=== PATIENT | female | born 1930 | race Caucasian/White ===

== ENCOUNTER 2016-11-12 13:06 | Emergency (ER) | payer MEDICARE, OTHER ==
[2016-11-12 13:19] VITALS: BP 143/58
[2016-11-12] MEDS ORDERED: NORMAL SALINE 1000 ML 1,000 ML IV PRN (15:23)
[2016-11-12] MEDS ORDERED: ONDANSETRON HCL INJ/PF 4 MG/2 ML SDV IV ONE (15:23)
[2016-11-12] MEDS ORDERED: FAMOTIDINE INJ/PF 20 MG/2 ML SDV IV ONE (15:23)
--- NOTE | 2016-11-12 15:25 | ER Document Report ---
ED Medical Screen (RME) - General Chief Complaint: Nausea/Vomiting/Diarrhea Stated Complaint: VOMITING Time Seen by Provider: 11/12/16 15:20 Mode of Arrival: Wheelchair Information source: Patient TRAVEL OUTSIDE OF THE [place] IN LAST 30 DAYS: No - HPI Patient complains to provider of: Right lower quadrant abdominal pain with nausea vomiting and diarrhea Onset: Yesterday Notes: 11/12/16 15:24 Is an 86-year-old female who presents to the emergency room complaining of right lower quadrant abdominal pain that started yesterday and is associated with nausea, vomiting and diarrhea, as well as chills, she was seen by her primary care provider today who sent her to the emergency room for evaluation for possible appendicitis, patient has a history of cholecystectomy in the past - Related Data Allergies/Adverse Reactions: Iodinated Contrast- Oral and IV Dye [IV Dye, Iodine Containing] Allergy (Severe , Verified 11/12/16 13:17) "Trouble Breathing" aspirin [Aspirin] Allergy (Verified 11/12/16 13:17) bacitracin [Bacitracin] Allergy (Verified 11/12/16 13:17) cephalexin [Cephalexin] Allergy (Verified 11/12/16 13:17) iodine [Iodine] Allergy (Verified 11/12/16 13:17) latex [Latex] Allergy (Verified 11/12/16 13:17) Quinolones Allergy (Verified 11/12/16 13:17) Sulfa (Sulfonamide Antibiotics) Allergy (Verified 11/12/16 13:17) Past Medical History - Past Medical History Cardiac Medical History: Reports: Hx Hypertension Pulmonary Medical History: Reports: Hx Asthma Neurological Medical History: Reports: 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, 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 Endocrine Medical History: Reports: Hx Diabetes Mellitus Type 2 - Controlled with diet Renal/ Medical History: Denies: Hx Peritoneal Dialysis GI Medical History: Reports: Hx Gastroesophageal Reflux Disease Musculoskeltal Medical History: Reports Hx Arthritis Psychiatric Medical History: Reports: Hx Depression Past Surgical History: Reports: Hx Cholecystectomy, Hx Hysterectomy, Hx Orthopedic Surgery - Bilat Feet, Hx Tonsillectomy - Immunizations Hx Diphtheria, Pertussis, Tetanus Vaccination: Yes Physical Exam - Vital signs Vitals: Temp Pulse Resp BP Pulse Ox 98.1 F 70 20 143/58 H 94 11/12/16 13:17 11/12/16 13:17 11/12/16 13:17 11/12/16 13:17 11/12/16 13:17 Course - Vital Signs Vital signs: Temp Pulse Resp BP Pulse Ox 98.1 F 70 20 143/58 H 94 11/12/16 13:17 11/12/16 13:17 11/12/16 13:17 11/12/16 13:17 11/12/16 13:17
--- NOTE | 2016-11-12 16:23 | ER Document Report ---
ED GI/ - General Chief Complaint: Nausea/Vomiting/Diarrhea Stated Complaint: VOMITING Time Seen by Provider: 11/12/16 15:20 Mode of Arrival: Wheelchair Notes: Patient is an 86-year-old female, past medical history cholecystitis, presents with increasing right lower quadrant abdominal pain, nausea and diarrhea over the past 2 days. She was seen at her primary care physician and sent to the ER for further evaluation and treatment. She denies fevers, urinary symptoms, flank pain, hematemesis, blood in stool, chest pain or shortness of breath. TRAVEL OUTSIDE OF THE [place] IN LAST 30 DAYS: No - Related Data Allergies/Adverse Reactions: Iodinated Contrast- Oral and IV Dye [IV Dye, Iodine Containing] Allergy (Severe , Verified 11/12/16 13:17) "Trouble Breathing" aspirin [Aspirin] Allergy (Verified 11/12/16 13:17) bacitracin [Bacitracin] Allergy (Verified 11/12/16 13:17) cephalexin [Cephalexin] Allergy (Verified 11/12/16 13:17) iodine [Iodine] Allergy (Verified 11/12/16 13:17) latex [Latex] Allergy (Verified 11/12/16 13:17) Quinolones Allergy (Verified 11/12/16 13:17) Sulfa (Sulfonamide Antibiotics) Allergy (Verified 11/12/16 13:17) Past Medical History - General Information source: Patient - Social History Smoking Status: Unknown if Ever Smoked Family History: Reviewed & Not Pertinent Patient has suicidal ideation: No Patient has homicidal ideation: No - Past Medical History Cardiac Medical History: Reports: Hx Hypertension Pulmonary Medical History: Reports: Hx Asthma Neurological Medical History: Reports: 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, 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 Endocrine Medical History: Reports: Hx Diabetes Mellitus Type 2 - Controlled with diet Renal/ Medical History: Denies: Hx Peritoneal Dialysis GI Medical History: Reports: Hx Gastroesophageal Reflux Disease Musculoskeltal Medical History: Reports Hx Arthritis Psychiatric Medical History: Reports: Hx Depression Past Surgical History: Reports: Hx Cholecystectomy, Hx Hysterectomy, Hx Orthopedic Surgery - Bilat Feet, Hx Tonsillectomy - Immunizations Hx Diphtheria, Pertussis, Tetanus Vaccination: Yes Hx Pneumococcal Vaccination: 05/27/08 Review of Systems - Review of Systems Notes: REVIEW OF SYSTEMS: CONSTITUTIONAL: -fevers, -chills EENT: -eye pain, -difficulty swallowing, -nasal congestion CARDIOVASCULAR:-chest pain, -syncope. RESPIRATORY: -cough, -SOB GASTROINTESTINAL: +abdominal pain, +nausea, +vomiting, +diarrhea GENITOURINARY: -dysuria, -hematuria MUSCULOSKELETAL: -back pain, -neck pain SKIN: -rash or skin lesions. HEMATOLOGIC: -easy bruising or bleeding. LYMPHATIC: -swollen, enlarged glands. NEUROLOGICAL: -altered mental status or loss of consciousness, -headache, - neurologic symptoms PSYCHIATRIC: -anxiety, -depression. ALL OTHER SYSTEMS REVIEWED AND NEGATIVE. Physical Exam - Vital signs Vitals: Temp Pulse Resp BP Pulse Ox 98.1 F 70 20 143/58 H 94 11/12/16 13:11/12/16 13:11/12/16 13:17 11/12/16 13:11/12/16 13:17 - Notes Notes: PHYSICAL EXAMINATION: GENERAL: Well-appearing, well-nourished and in no acute distress. HEAD: Atraumatic, normocephalic. EYES: Pupils equal round and reactive to light, extraocular movements intact, sclera anicteric, conjunctiva are normal. ENT: nares patent, oropharynx clear without exudates. Moist mucous membranes. NECK: Normal range of motion, supple without lymphadenopathy LUNGS: Breath sounds clear to auscultation bilaterally and equal. No wheezes rales or rhonchi. HEART: Regular rate and rhythm without murmurs ABDOMEN: Soft, moderate RLQ and suprapubic tenderness, normoactive bowel sounds. No guarding, no rebound. No masses appreciated. EXTREMITIES: Normal range of motion, no pitting or edema. No cyanosis. NEUROLOGICAL: Cranial nerves grossly intact. Normal speech, normal gait. Normal sensory and motor exams. PSYCH: Normal mood, normal affect. SKIN: Warm, Dry, normal turgor, no rashes or lesions noted. Course - Re-evaluation Re-evalutation: Patient has evidence of UTI. She appears well and her mental status is baseline per her family. Pt with multiple Abx allergies. Her family says that she has taken Macrobid without any reactions. Will send home with Macrobid and f /u at her PMD. Also told family about adrenal mass and need for outpatient MRI. They understand and they were provided with a copy of the CT results. Given return precautions and they understand. - Vital Signs Vital signs: Temp Pulse Resp BP Pulse Ox 98.1 F 70 20 143/58 H 94 11/12/16 13:17 11/12/16 13:17 11/12/16 13:17 11/12/16 13:17 11/12/16 13:17 - Laboratory Result Diagrams: 11/12/16 16:38 11/12/16 16:38 Laboratory results interpreted by me: 11/12/16 11/12/16 11/12/16 16:23 16:38 16:38 RDW 14.8 H Sodium 130.1 L Chloride 92 L Urine Ketones 20 H Urine Nitrite POSITIVE H Ur Leukocyte Esterase SMALL H Urine Ascorbic Acid 40 H - Diagnostic Test Radiology reviewed: Image reviewed, Reports reviewed Radiology results interpreted by me: CT A/P: IMPRESSION: 1. There is a left adrenal nodule that is not obviously an adenoma. Consider MRI or CT with contrast further evaluation. 2. Diverticulosis coli. 3. There are 2 nonobstructing intrarenal calculi on the left. 4. There is lumbar degenerative disc disease and spondylosis. Discharge - Discharge Clinical Impression: Adrenal mass UTI (urinary tract infection) Qualifiers: Urinary tract infection type: acute cystitis Hematuria presence: without hematuria Qualified Code(s): N30.00 - Acute cystitis without hematuria Abdominal pain Qualifiers: Abdominal location: unspecified location Qualified Code(s): R10.9 - Unspecified abdominal pain Condition: Stable Disposition: HOME, SELF-CARE Additional Instructions: You must follow-up with your primary care physician for further evaluation of your adrenal mass. URINARY TRACT INFECTION: Your evaluation indicates that you have a urinary tract infection. This is due to germs growing in the bladder. This is a common problem. This infection usually responds quickly to antibiotics. Your antibiotic should be taken exactly as prescribed. Drink plenty of fluids -- three to four quarts a day. Occasionally, a bladder anesthetic will be prescribed to help stop the feeling of urgency until the antibiotic has a chance to clear the infection. This may cause your urine to be dark orange. Certain urine infections require a culture. If the doctor obtained a culture, the results will be back in two days. You should call to see if a change in treatment is needed. A repeat urinalysis after you finish treatment is often recommended. The physician will let you know if further testing is required. Call the doctor if you develop fever, chills, flank pain, inability to urinate, or blood in the urine. ANTIBIOTIC THERAPY: You have been given an antibiotic prescription. It's important that you take all the medication, unless instructed otherwise by your physician. Failure to complete the entire course can result in relapse of your condition. Common side effects of antibiotics include nausea, intestinal cramping, or diarrhea. Women may develop vaginal yeast infections, and babies can get yeast (thrush) in the mouth following the use of antibiotics. Contact your physician if you develop significant side effects from this medication. Allergy to this antibiotic can result in hives, wheezing, faintness, or itching. If symptoms of allergy occur, stop the medication and call the doctor. NITROFURANTOIN (MACRODANTIN, MACROBID): You have received a prescription for nitrofurantoin (Macrodantin). This antibiotic is used for urinary tract infections. Women who are or nursing should notify the physician before taking this medicine. If you have ever had a problem caused by this medication in the past, be sure the physician is aware of it. Common side effects of this medicine include nausea, vomiting, or decreased appetite. Notify your physician if these side effects become severe. Immediately stop this medicine and call the physician if you develop cough , shortness of breath, chest pain, weakness, jaundice (yellow color of the skin and whites of the eyes), or a skin rash. FOLLOW-UP CARE: If you have been referred to a physician for follow-up care, call the physician s office for an appointment as you were instructed or within the next two days. If you experience worsening or a significant change in your symptoms, notify the physician immediately or return to the Emergency Department at any time for re-evaluation. Prescriptions: Metoclopramide HCl [Reglan 10 mg Tablet] 1 - 2 tab PO ASDIR PRN #10 tablet PRN Reason: Nitrofurantoin/Nitrofuran Mac [Macrobid 100 mg Capsule] 1 tab PO BID #10 capsule
[2016-11-12 16:51] LABS: APPEARANCE,URINE SLIGHTLY-CLOUDY; BILIRUBIN,URINE NEGATIVE (NEGATIVE); GLUCOSE, URINE NEGATIVE (NEGATIVE); KETONES,URINE 20 mg/dL (NEGATIVE); LEUKOCYTE ESTERASE,URINE SMALL (NEGATIVE); NITRITE,URINE POSITIVE (NEGATIVE); PROTEIN,URINE NEGATIVE (NEGATIVE); URINE SPECIFIC GRAVITY 1.017; UROBILINOGEN,URINE NEGATIVE mg/dL (<2.0)
[2016-11-12 16:58] LABS: ABSOLUTE LYMPHOCYTES (AUTO) 1.5 10^3/uL (0.5-4.7); ABSOLUTE MONOCYTES (AUTO) 0.7 10^3/uL (0.1-1.4); BASOPHILS % (AUTO) 0.5 % (0-2); EOSINOPHILS % (AUTO) 0.6 % (0-6); HEMATOCRIT 36.2 % (36.0-47.0); HEMOGLOBIN 12.2 g/dL (12.0-15.5); HGB HCT DIFFERENCE 0.4; LYMPHOCYTES % (AUTO) 20.2 % (13-45); MEAN CORPUSCULAR HEMOGLOBIN 30.2 pg (27.0-33.4); MEAN CORPUSCULAR HGB CONC 33.8 g/dL (32.0-36.0); MEAN CORPUSCULAR VOLUME 89 fl (80-97); RED BLOOD COUNT 4.04 10^6/uL (3.72-5.28); RED CELL DISTRIBUTION WIDTH 14.8 % (11.5-14.0); SEGMENTED NEUTROPHILS % (AUTO) 69.7 % (42-78); WHITE BLOOD COUNT 7.2 10^3/uL (4.0-10.5)
[2016-11-12] MEDS ORDERED: METOCLOPRAMIDE HCL INJ/PF 10 MG/2 ML SDV IV ONE (17:08)
[2016-11-12 17:17] LABS: ALANINE AMINOTRANSFERASE 33 U/L (9-52); ALBUMIN 3.8 g/dL (3.5-5.0); ALKALINE PHOSPHATASE 59 U/L (38-126); ANION GAP 9 (5-19); ASPARTATE AMINO TRANSFERASE 24 U/L (14-36); BILIRUBIN,DIRECT 0.2 mg/dL (0.0-0.4); BILIRUBIN,TOTAL 0.6 mg/dL (0.2-1.3); BLOOD UREA NITROGEN 16 mg/dL (7-20); CALCIUM 9.1 mg/dL (8.4-10.2); CARBON DIOXIDE 29 mmol/L (22-30); CHLORIDE 92 mmol/L (98-107); CREATININE RESULT 0.76 mg/dL (0.52-1.25); GLUCOSE 88 mg/dL (75-110); LIPASE 69.6 U/L (23-300); POTASSIUM 4.4 mmol/L (3.6-5.0); SODIUM 130.1 mmol/L (137-145); TOTAL PROTEIN 6.9 g/dL (6.3-8.2)
--- NOTE | 2016-11-12 17:38 | RADIOLOGY REPORT (SQ) ---
EXAM DESCRIPTION: CT ABD/PELVIS NO ORAL OR IV COMPLETED DATE/TIME: 11/12/2016 5:17 pm REASON FOR STUDY: RLQ pain COMPARISON: None. TECHNIQUE: CT scan of the abdomen and pelvis performed without intravenous or oral contrast. Images reviewed with lung, soft tissue, and bone windows. Reconstructed coronal and sagittal MPR images revi ewed. All images stored on PACS. All CT scanners at this facility use dose modulation, iterative reconstruction, and/or weight based d osing when appropriate to reduce radiation dose to as low as reasonably achievable (ALARA). [facility]: Dose Right [facility]: CareDose [facility]: Dose Right [facility]: Teradose 4D [facility]: Obvious RADIATION DOSE: 10.77mGy. LIMITATIONS: None. FINDINGS: LOWER CHEST: No significant findings. No nodules or infiltrates. NON-CONTRASTED LIVER, SPLEEN, ADRENALS: The liver and spleen are normal. There is a 14 mm left adren al nodule of intermediate density, 38 Hounsfield units. PANCREAS: No masses. No peripancreatic inflammatory changes. GALLBLADDER: Surgically absent. RIGHT KIDNEY AND URETER: No suspicious masses. Assessment limited by lack of IV contrast. No signif icant calcifications. No hydronephrosis or hydroureter. LEFT KIDNEY AND URETER: No suspicious masses. Assessment limited by lack of IV contrast. There are 2 nonobstructing intrarenal calculi. The larger measures about 3 mm. No hydronephrosis or hydroure ter. AORTA AND RETROPERITONEUM: No aneurysm. No retroperitoneal masses or adenopathy. BOWEL AND PERITONEAL CAVITY: Multiple diverticula arise from the distal sigmoid colon and rectum. Th ere are no acute inflammatory changes. APPENDIX: Normal. PELVIS, BLADDER, AND ABDOMINAL WALL:The urinary bladder is normal. The uterus appears to be absent. There is no adnexal mass or fluid collection. BONES: All the lumbar disc spaces are narrowed. Small marginal osteophytes are present. OTHER: No other significant finding. IMPRESSION: 1. There is a left adrenal nodule that is not obviously an adenoma. Consider MRI or CT with contrast further evaluation. 2. Diverticulosis coli. 3. There are 2 nonobstructing intrarenal calculi on the left. 4. There is lumbar degenerative disc disease and spondylosis. TECHNICAL DOCUMENTATION: JOB ID: [id number] Quality ID # [id number]: Final reports with documentation of one or more dose reduction techniques (e.g., Au tomated exposure control, adjustment of the mA and/or kV according to patient size, use of iterative reconstruction technique) 2010 [employer]- All Rights Reserved
--- NOTE | 2016-11-12 17:57 | EKG REPORT ---
SEVERITY:- ABNORMAL ECG - INCOMPLETE LEFT BUNDLE BRANCH BLOCK ANTERIOR INFARCT, AGE INDETERMINATE BORDERLINE PROLONGED QT INTERVAL SINUS RHYTHM WITH APC'S AND BASELINE ARTIFACT : Confirmed by: Delia Pimentel MD 12-Nov-2016 17:56:42
[2016-11-12] MEDS ORDERED: NITROFURANTOIN MONOHYD/M-CRYST 100 MG CAPSULE PO ONE (18:12)
== END 2016-11-12 19:16 | disposition home or self-care (01) ==
LOC: ER 13:06
DX: E27.9 Disorder of adrenal gland, unspecified (principal); N30.00 Acute cystitis without hematuria; R11.2 Nausea with vomiting, unspecified; R19.7 Diarrhea, unspecified; R10.31 Right lower quadrant pain
CPT/HCPCS: 36415; 51701; 74176; 80053; 81001; 83690; 85025; 87086; 87088; 87186; 93005; 93010; 99284

== ENCOUNTER 2017-04-29 13:37 | Emergency (ER) | payer MEDICARE, OTHER ==
--- NOTE | 2017-04-29 15:03 | ER Document Report ---
ED General - General Chief Complaint: Medical Complaint Stated Complaint: ALTERED MENTAL STATUS Time Seen by Provider: 04/29/17 14:13 Mode of Arrival: Stretcher Information source: Patient, Transfer Record, [facility] Records Cannot obtain history due to: Dementia TRAVEL OUTSIDE OF THE [place] IN LAST 30 DAYS: No - HPI Patient complains to provider of: no complaints Similar symptoms previously: Yes Notes: Went into the room was the patient was sitting upright in her gurney. Her eyes were open. When I asked her what was wrong she stated she really had no complaints. Requesting a glass of water. According to the nurse after I talked to her she stated that the patient appeared short of breath at home and soon the family gave her breathing treatment and then sent her here to be evaluated. The patient does admit to holding her breath because she was afraid of dying. Patient does have dementia although alert and oriented 3 in the emergency department. She cannot name the exact year but she does know that the president is "Alejandro Hopper". - Related Data Allergies/Adverse Reactions: Iodinated Contrast- Oral and IV Dye [IV Dye, Iodine Containing] Allergy (Severe , Verified 11/12/16 13:17) "Trouble Breathing" aspirin [Aspirin] Allergy (Verified 11/12/16 13:17) bacitracin [Bacitracin] Allergy (Verified 11/12/16 13:17) cephalexin [Cephalexin] Allergy (Verified 11/12/16 13:17) iodine [Iodine] Allergy (Verified 11/12/16 13:17) latex [Latex] Allergy (Verified 11/12/16 13:17) Quinolones Allergy (Verified 11/12/16 13:17) Sulfa (Sulfonamide Antibiotics) Allergy (Verified 11/12/16 13:17) Past Medical History - General Information source: [facility] Records Cannot obtain history due to: Dementia - Social History Smoking Status: Unknown if Ever Smoked Cigarette use (# per day): No Smoking Education Provided: No Frequency of alcohol use: None Drug Abuse: None Lives with: Family Family History: Reviewed & Not Pertinent Patient has suicidal ideation: No Patient has homicidal ideation: No - Past Medical History Cardiac Medical History: Reports: Hx Hypertension Pulmonary Medical History: Reports: Hx Asthma Neurological Medical History: Reports: 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, 11/10/14 Endocrine Medical History: Reports: Hx Diabetes Mellitus Type 2 - Controlled with diet Renal/ Medical History: Denies: Hx Peritoneal Dialysis GI Medical History: Reports: Hx Gastroesophageal Reflux Disease Musculoskeltal Medical History: Reports Hx Arthritis Psychiatric Medical History: Reports: Hx Depression Past Surgical History: Reports: Hx Cholecystectomy, Hx Hysterectomy, Hx Orthopedic Surgery - Bilat Feet, Hx Tonsillectomy - Immunizations Hx Diphtheria, Pertussis, Tetanus Vaccination: Yes Hx Pneumococcal Vaccination: 05/27/08 Review of Systems - Review of Systems Constitutional: denies: Fever, Weakness EENT: denies: Nose congestion, Difficulty swallowing Cardiovascular: denies: Chest pain Respiratory: denies: Cough, Short of breath Gastrointestinal: denies: Abdominal pain Musculoskeletal: denies: Back pain Neurological/Psychological: Dementia Physical Exam - Vital signs Vitals: Resp Pulse Ox 15 98 04/29/17 13:46 04/29/17 13:46 - Notes Notes: PHYSICAL EXAMINATION: GENERAL: Well-appearing, well-nourished and in no acute distress. HEAD: Atraumatic, normocephalic. EYES: Pupils equal round and reactive to light, extraocular movements intact, conjunctiva are normal. ENT: Nares patent, oropharynx clear without exudates. Moist mucous membranes. NECK: Normal range of motion, supple without lymphadenopathy LUNGS: Breath sounds clear to auscultation bilaterally and equal. No wheezes rales or rhonchi. HEART: Regular rate and rhythm ABDOMEN: Soft, nontender, nondistended abdomen. No guarding, no rebound. No masses appreciated. Female : deferred Musculoskeletal: Normal range of motion, no pitting or edema. No cyanosis. NEUROLOGICAL: Cranial nerves grossly intact. Normal speech, normal gait. Normal sensory, motor exams PSYCH: Normal mood, normal affect. SKIN: Warm, Dry, normal turgor, no rashes or lesions noted. Course - Re-evaluation Re-evalutation: 04/29/17 16:37 Nurses obtaining the urine right now via straight cath. I did talk to the patient's son as well as the patient's grandson. They stated that the patient had difficulty breathing at home and then she coughed up a lot of mucus. They said she also had a "puddle of fluid underneath her that appeared to be urine mixed with feces SPLICING TECHNICIAN. 04/29/17 20:17 The nurse stated that when she attempted to obtain the urine that the patient urinated around the catheter. At that point there is no urine to be obtained. I continue to await urine. I did ask the nurse multiple times for specimen. It is currently in the lab and the results are pending - Vital Signs Vital signs: Temp Pulse Resp BP Pulse Ox 9 L 137/49 H 94 04/29/17 18:01 04/29/17 18:01 04/29/17 18:01 - Laboratory Result Diagrams: 04/29/17 15:32 04/29/17 15:32 Laboratory results interpreted by me: 04/29/17 04/29/17 15:32 19:48 Hgb 11.9 L Hct 35.2 L RDW 15.1 H Seg Neutrophils % 78.8 H Urine Ketones 20 H Urine Urobilinogen 2.0 H Urine Ascorbic Acid 20 H Discharge - Discharge Clinical Impression: Anemia Condition: Stable Disposition: HOME, SELF-CARE Additional Instructions: please follow up with Dr. Painting, your primary doctor this week.
[2017-04-29 15:52] LABS: ABSOLUTE LYMPHOCYTES (AUTO) 1.3 10^3/uL (0.5-4.7); ABSOLUTE MONOCYTES (AUTO) 0.7 10^3/uL (0.1-1.4); ABSOLUTE NEUT (AUTO) 7.9 10^3/uL (1.7-8.2); BASOPHILS % (AUTO) 0.3 % (0-2); EOSINOPHILS % (AUTO) 0.4 % (0-6); HEMATOCRIT 35.2 % (36.0-47.0); HEMOGLOBIN 11.9 g/dL (12.0-15.5); HGB HCT DIFFERENCE 0.5; LYMPHOCYTES % (AUTO) 13.2 % (13-45); MEAN CORPUSCULAR HEMOGLOBIN 30.6 pg (27.0-33.4); MEAN CORPUSCULAR HGB CONC 33.9 g/dL (32.0-36.0); MEAN CORPUSCULAR VOLUME 90 fl (80-97); MONOCYTES % (AUTO) 7.3 % (3-13); RED BLOOD COUNT 3.89 10^6/uL (3.72-5.28); RED CELL DISTRIBUTION WIDTH 15.1 % (11.5-14.0); SEGMENTED NEUTROPHILS % (AUTO) 78.8 % (42-78)
[2017-04-29 16:09] LABS: ANION GAP 14 (5-19); BLOOD UREA NITROGEN 17 mg/dL (7-20); CALCIUM 9.5 mg/dL (8.4-10.2); CARBON DIOXIDE 29 mmol/L (22-30); CHLORIDE 100 mmol/L (98-107); CREATININE RESULT 0.77 mg/dL (0.52-1.25); GLUCOSE 96 mg/dL (75-110); POTASSIUM 4.2 mmol/L (3.6-5.0); SODIUM 142.6 mmol/L (137-145)
--- NOTE | 2017-04-29 17:18 | RADIOLOGY REPORT (SQ) ---
EXAM DESCRIPTION: CHEST SINGLE VIEW COMPLETED DATE/TIME: 04/29/2017 4:54 pm REASON FOR STUDY: sob COMPARISON: 04/05/2014 EXAM PARAMETERS: NUMBER OF VIEWS: One view. TECHNIQUE: Single frontal radiographic view of the chest acquired. RADIATION DOSE: NA LIMITATIONS: None. FINDINGS: LUNGS AND PLEURA: No opacities, masses or pneumothorax. No pleural effusion. MEDIASTINUM AND HILAR STRUCTURES: No masses. Contour normal. HEART AND VASCULAR STRUCTURES: Heart normal in size. Normal vasculature. BONES: No acute findings. HARDWARE: None in the chest. OTHER: No other significant finding. IMPRESSION: NO ACUTE RADIOGRAPHIC FINDING IN THE CHEST. TECHNICAL DOCUMENTATION: JOB ID: [id number] [employer]- All Rights Reserved
[2017-04-29 20:15] LABS: APPEARANCE,URINE CLEAR; BILIRUBIN,URINE NEGATIVE (NEGATIVE); GLUCOSE, URINE NEGATIVE (NEGATIVE); KETONES,URINE 20 mg/dL (NEGATIVE); LEUKOCYTE ESTERASE,URINE NEGATIVE (NEGATIVE); NITRITE,URINE NEGATIVE (NEGATIVE); PROTEIN,URINE NEGATIVE (NEGATIVE); URINE SPECIFIC GRAVITY 1.018
[2017-04-29 20:27] LABS: WBC,URINE 0-1 /HPF
[2017-04-29 21:08] VITALS: BP 113/51
== END 2017-04-29 21:27 | disposition home or self-care (01) ==
LOC: ER 13:37
DX: D64.9 Anemia, unspecified (principal); R41.82 Altered mental status, unspecified; I10 Essential (primary) hypertension; F03.90 Unspecified dementia, unspecified severity, without behavioral disturbance, psychotic disturbance, mood disturbance, and anxiety; Z88.6 Allergy status to analgesic agent; I69.951 Hemiplegia and hemiparesis following unspecified cerebrovascular disease affecting right dominant side; Z90.49 Acquired absence of other specified parts of digestive tract; Z90.710 Acquired absence of both cervix and uterus; Z91.040 Latex allergy status; Z88.2 Allergy status to sulfonamides
CPT/HCPCS: 36415; 51701; 71010; 80048; 81001; 85025; 99285

== ENCOUNTER 2017-09-25 11:43 | Observation (INO) | payer MEDICARE, OTHER ==
--- NOTE | 2017-09-25 12:08 | ER Document Report ---
ED Medical Screen (RME) - General Chief Complaint: Urinary Problem Stated Complaint: URINARY PROBLEMS Time Seen by Provider: 09/25/17 11:59 Mode of Arrival: Wheelchair Information source: Relative Cannot obtain history due to: Dementia TRAVEL OUTSIDE OF THE [place] IN LAST 30 DAYS: No - HPI Onset: Other - MAYBE A MONTH Onset/Duration: Gradual Quality of pain: Other - CAN'T DESCRIBE Severity: Moderate Associated Symptoms: Chills, Diarrhea, Other - WORSENING DEMENTIA Exacerbated by: Denies Relieved by: Denies Similar symptoms previously: Yes Recently seen / treated by doctor: No - Related Data Smoking: Non-smoker Frequency of alcohol use: None Drug Abuse: None Allergies/Adverse Reactions: Iodinated Contrast- Oral and IV Dye [IV Dye, Iodine Containing] Allergy (Severe , Verified 11/12/16 13:17) "Trouble Breathing" aspirin [Aspirin] Allergy (Verified 11/12/16 13:17) bacitracin [Bacitracin] Allergy (Verified 11/12/16 13:17) cephalexin [Cephalexin] Allergy (Verified 11/12/16 13:17) iodine [Iodine] Allergy (Verified 11/12/16 13:17) latex [Latex] Allergy (Verified 11/12/16 13:17) Quinolones Allergy (Verified 11/12/16 13:17) Sulfa (Sulfonamide Antibiotics) Allergy (Verified 11/12/16 13:17) Past Medical History - General Information source: Relative - Social History Cigarette use (# per day): No Chew tobacco use (# tins/day): No Frequency of alcohol use: None Drug Abuse: None Lives with: Family - Past Medical History Cardiac Medical History: Reports: Hx Hypertension Pulmonary Medical History: Reports: Hx Asthma Neurological Medical History: Reports: 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, 04/05/14 Endocrine Medical History: Reports: Hx Diabetes Mellitus Type 2 - Controlled with diet Renal/ Medical History: Denies: Hx Peritoneal Dialysis GI Medical History: Reports: Hx Gastroesophageal Reflux Disease Musculoskeltal Medical History: Reports Hx Arthritis Psychiatric Medical History: Reports: Hx Depression Past Surgical History: Reports: Hx Cholecystectomy, Hx Hysterectomy, Hx Orthopedic Surgery - Bilat Feet, Hx Tonsillectomy - Immunizations Hx Diphtheria, Pertussis, Tetanus Vaccination: Yes Review of Systems - Review of Systems Constitutional: Chills EENT: No symptoms reported Cardiovascular: No symptoms reported Respiratory: No symptoms reported Gastrointestinal: See HPI Genitourinary: See HPI Female Genitourinary: Post menopausal Skin: No symptoms reported Neurological/Psychological: Dementia Physical Exam - Vital signs Vitals: Temp Pulse Resp BP 98.4 F 72 18 125/52 L 09/25/17 11:52 09/25/17 11:52 09/25/17 11:52 09/25/17 11:52 Interpretation: Normal. No: Tachycardic, Tachypneic, Febrile - General General appearance: Appears well, Alert In distress: None - HEENT Head: Normocephalic Eyes: Normal Conjunctiva: Normal Nasal: Normal Mouth/Lips: Normal Mucous membranes: Normal - Respiratory Respiratory status: No respiratory distress - Cardiovascular Rhythm: Regular - Extremities General upper extremity: Normal inspection General lower extremity: Normal inspection. No: Edema - Neurological Cognition: Confused - Skin Skin Temperature: Warm Skin Moisture: Dry Skin Color: Normal Skin Turgor: Elastic Course - Vital Signs Vital signs: Temp Pulse Resp BP Pulse Ox 98.4 F 72 18 125/52 L 09/25/17 11:52 09/25/17 11:52 09/25/17 11:52 09/25/17 11:52
[2017-09-25 14:10] LABS: ABSOLUTE BASOPHILS # (AUTO) 0.1 10^3/uL (0.0-0.2); ABSOLUTE LYMPHOCYTES (AUTO) 1.5 10^3/uL (0.5-4.7); ABSOLUTE MONOCYTES (AUTO) 0.7 10^3/uL (0.1-1.4); ABSOLUTE NEUT (AUTO) 8.6 10^3/uL (1.7-8.2); BASOPHILS % (AUTO) 0.6 % (0-2); EOSINOPHILS % (AUTO) 0.3 % (0-6); HEMATOCRIT 39.2 % (36.0-47.0); HEMOGLOBIN 13.1 g/dL (12.0-15.5); LYMPHOCYTES % (AUTO) 13.6 % (13-45); MEAN CORPUSCULAR HEMOGLOBIN 29.8 pg (27.0-33.4); MEAN CORPUSCULAR HGB CONC 33.4 g/dL (32.0-36.0); MEAN CORPUSCULAR VOLUME 89 fl (80-97); MONOCYTES % (AUTO) 6.7 % (3-13); RED BLOOD COUNT 4.39 10^6/uL (3.72-5.28); RED CELL DISTRIBUTION WIDTH 15.1 % (11.5-14.0); SEGMENTED NEUTROPHILS % (AUTO) 78.8 % (42-78); TOTAL CELLS COUNTED % (AUTO) 100 %; WHITE BLOOD COUNT 10.9 10^3/uL (4.0-10.5)
[2017-09-25 14:17] LABS: APPEARANCE,URINE SLIGHTLY-CLOUDY; BILIRUBIN,URINE SMALL (NEGATIVE); COLOR,URINE YELLOW; GLUCOSE, URINE NEGATIVE (NEGATIVE); KETONES,URINE TRACE mg/dL (NEGATIVE); LEUKOCYTE ESTERASE,URINE LARGE (NEGATIVE); NITRITE,URINE NEGATIVE (NEGATIVE); PROTEIN,URINE 100 mg/dL (NEGATIVE); URINE SPECIFIC GRAVITY 1.025
[2017-09-25 14:23] LABS: ALANINE AMINOTRANSFERASE 21 U/L (9-52); ALBUMIN 4.1 g/dL (3.5-5.0); ALKALINE PHOSPHATASE 64 U/L (38-126); ANION GAP 14 (5-19); ASPARTATE AMINO TRANSFERASE 28 U/L (14-36); BILIRUBIN,DIRECT 0.3 mg/dL (0.0-0.4); BILIRUBIN,TOTAL 0.3 mg/dL (0.2-1.3); BLOOD UREA NITROGEN 22 mg/dL (7-20); CALCIUM 9.6 mg/dL (8.4-10.2); CARBON DIOXIDE 29 mmol/L (22-30); CHLORIDE 98 mmol/L (98-107); GLUCOSE 113 mg/dL (75-110); LIPASE 69.1 U/L (23-300); SODIUM 141.3 mmol/L (137-145); TOTAL PROTEIN 6.9 g/dL (6.3-8.2)
[2017-09-25 14:26] LABS: PLATELET COUNT 283 10^3/uL (150-450)
[2017-09-25] MEDS ORDERED: DOXYCYCLINE HYCLATE INJ 100 MG VIAL IV ONE (14:58)
--- NOTE | 2017-09-25 14:59 | ER Document Report ---
ED GI/ - General Chief Complaint: Urinary Problem Stated Complaint: URINARY PROBLEMS Time Seen by Provider: 09/25/17 11:59 Mode of Arrival: Wheelchair Notes: The patient is an 86-year-old female, past medical history dementia, CVA, TIA, presents from her primary care physician's office, Dr. Stauffer after she has had diarrhea for 10 days, vomiting for 1 day and decreased oral intake. In addition, she is having increased confusion during this time. Patient states that she is having painful urination and lower abdominal pain. No history of recent antibiotic use to suggest C. difficile. TRAVEL OUTSIDE OF THE [place] IN LAST 30 DAYS: No - Related Data Allergies/Adverse Reactions: Iodinated Contrast- Oral and IV Dye [IV Dye, Iodine Containing] Allergy (Severe , Verified 11/12/16 13:17) "Trouble Breathing" aspirin [Aspirin] Allergy (Verified 11/12/16 13:17) bacitracin [Bacitracin] Allergy (Verified 11/12/16 13:17) cephalexin [Cephalexin] Allergy (Verified 11/12/16 13:17) iodine [Iodine] Allergy (Verified 11/12/16 13:17) latex [Latex] Allergy (Verified 11/12/16 13:17) Quinolones Allergy (Verified 11/12/16 13:17) Sulfa (Sulfonamide Antibiotics) Allergy (Verified 11/12/16 13:17) Past Medical History - General Information source: Patient, Relative - Social History Smoking Status: Never Smoker Cigarette use (# per day): No Chew tobacco use (# tins/day): No Frequency of alcohol use: None Drug Abuse: None Lives with: Family Family History: Reviewed & Not Pertinent Patient has suicidal ideation: No Patient has homicidal ideation: No - Past Medical History Cardiac Medical History: Reports: Hx Hypertension Pulmonary Medical History: Reports: Hx Asthma Neurological Medical History: Reports: 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, 04/05/14 Endocrine Medical History: Reports: Hx Diabetes Mellitus Type 2 - Controlled with diet Renal/ Medical History: Denies: Hx Peritoneal Dialysis GI Medical History: Reports: Hx Gastroesophageal Reflux Disease Musculoskeltal Medical History: Reports Hx Arthritis Psychiatric Medical History: Reports: Hx Depression Past Surgical History: Reports: Hx Cholecystectomy, Hx Hysterectomy, Hx Orthopedic Surgery - Bilat Feet, Hx Tonsillectomy - Immunizations Hx Diphtheria, Pertussis, Tetanus Vaccination: Yes Hx Pneumococcal Vaccination: 05/27/08 Review of Systems - Review of Systems Notes: REVIEW OF SYSTEMS: CONSTITUTIONAL: -fevers, -chills EENT: -eye pain, -difficulty swallowing, -nasal congestion CARDIOVASCULAR: -chest pain, -syncope. RESPIRATORY: -cough, -SOB GASTROINTESTINAL: +lower abdominal pain, -nausea, +vomiting, +diarrhea GENITOURINARY: +dysuria, -hematuria MUSCULOSKELETAL: -back pain, -neck pain SKIN: -rash or skin lesions. HEMATOLOGIC: -easy bruising or bleeding. LYMPHATIC: -swollen, enlarged glands. NEUROLOGICAL: +altered mental status, -loss of consciousness, -headache, - neurologic symptoms PSYCHIATRIC: -anxiety, -depression. ALL OTHER SYSTEMS REVIEWED AND NEGATIVE. Physical Exam - Vital signs Vitals: Temp Pulse Resp BP 98.4 F 72 18 125/52 L 09/25/17 11:52 09/25/17 11:52 09/25/17 11:52 09/25/17 11:52 - Notes Notes: PHYSICAL EXAMINATION: GENERAL: Well-appearing, well-nourished and in no acute distress. AAOx3. HEAD: Atraumatic, normocephalic. EYES: Pupils equal round and reactive to light, extraocular movements intact, sclera anicteric, conjunctiva are normal. ENT: nares patent, oropharynx clear without exudates. Moist mucous membranes. NECK: Normal range of motion, supple without lymphadenopathy LUNGS: Breath sounds clear to auscultation bilaterally and equal. No wheezes rales or rhonchi. HEART: Regular rate and rhythm without murmurs ABDOMEN: Soft, mild RLQ and suprapubic tender, normoactive bowel sounds. No guarding, no rebound. No masses appreciated. EXTREMITIES: Normal range of motion, no pitting or edema. No cyanosis. NEUROLOGICAL: Cranial nerves grossly intact. Normal speech. Normal sensory and motor exams. PSYCH: Normal mood, normal affect. SKIN: Warm, Dry, normal turgor, no rashes or lesions noted. Course - Re-evaluation Re-evalutation: Patient appears well and is oriented 3. She does have evidence of a urinary tract infection on urinalysis. Looking through prior sensitivities and allergy list, will begin doxycycline. She is tender in the right lower quadrant, but has an allergic reaction to IV and oral dye. She is unsure about what reaction this is. Will scan her without contrast. CT scan does not show appendicitis or diverticulitis, but does show lytic lesions on her pelvis and femur. Spoke to family about these lytic lesions and possibility for bone cancer. Also provided the report of the CT scan. With her advanced age and comorbidities, family does not want to aggressively workup these lytic lesions. Because she is not eating or drinking at home, they would like her to be admitted for IV antibiotics and fluids. She is hemodynamically stable at this time. She requires admission due to increased confusion with urinary tract infection. 09/25/17 16:19Spoke to Dr. Santana (Hospitalist) and will admit patient to Observation on Medical floor for further evaluation and treatment. - Vital Signs Vital signs: Temp Pulse Resp BP Pulse Ox 98.4 F 72 18 125/52 L 09/25/17 11:52 09/25/17 11:52 09/25/17 11:52 09/25/17 11:52 - Laboratory Result Diagrams: 09/25/17 13:10 09/25/17 13:10 Laboratory results interpreted by me: 09/25/17 09/25/17 09/25/17 13:10 13:10 13:10 WBC 10.9 H RDW 15.1 H Seg Neutrophils % 78.8 H Absolute Neutrophils 8.6 H BUN 22 H Glucose 113 H Urine Protein 100 H Urine Ketones TRACE H Urine Bilirubin SMALL H Urine Urobilinogen 2.0 H Ur Leukocyte Esterase LARGE H - Diagnostic Test Radiology reviewed: Image reviewed, Reports reviewed Radiology results interpreted by me: CT A/P: No acute findings. No CT evidence of acute diverticulitis or appendicitis. Permeative lytic pattern in the bones of the pelvis and proximal femurs. Question myeloma or other lymphoproliferative process. Discharge - Discharge Clinical Impression: Vomiting and diarrhea, Decreased oral intake, Lytic bone lesions on xray UTI (urinary tract infection) Qualifiers: Urinary tract infection type: site unspecified Hematuria presence: without hematuria Qualified Code(s): N39.0 - Urinary tract infection, site not specified Altered mental status Qualifiers: Altered mental status type: unspecified Qualified Code(s): R41.82 - Altered mental status, unspecified Condition: Stable Disposition: ADMITTED OBSERVATION Admitting Provider: Hospitalist - [facility] Unit Admitted: Medical Floor Referrals: HOLLIS STAUFFER, [Primary Care Provider] - Follow up as needed
--- NOTE | 2017-09-25 16:04 | RADIOLOGY REPORT (SQ) ---
EXAM DESCRIPTION: CT ABD/PELVIS NO ORAL OR IV COMPLETED DATE/TIME: 09/25/2017 3:46 pm REASON FOR STUDY: RLQ tenderness, allergy to Dye COMPARISON: CT abdomen pelvis 11/12/2016 TECHNIQUE: CT scan of the abdomen and pelvis performed without intravenous or oral contrast. Images reviewed with lung, soft tissue, and bone windows. Reconstructed coronal and sagittal MPR images revi ewed. All images stored on PACS. All CT scanners at this facility use dose modulation, iterative reconstruction, and/or weight based d osing when appropriate to reduce radiation dose to as low as reasonably achievable (ALARA). [facility]: Dose Right [facility]: CareDose [facility]: Dose Right [facility]: Teradose 4D [facility]: Smart [employer] RADIATION DOSE: CT Rad equipment meets quality standard of care and radiation dose reduction techniq ues were employed. CTDIvol: 8.9 mGy. DLP: 449 mGy-cm.mGy. LIMITATIONS: None. FINDINGS: LOWER CHEST: Heavily calcified mitral annulus. NON-CONTRASTED LIVER, SPLEEN, ADRENALS: Evaluation limited by lack of IV contrast. Liver, spleen, ri ght adrenal gland unremarkable. Unchanged 1.6 cm left adrenal nodule PANCREAS: No masses. No peripancreatic inflammatory changes. GALLBLADDER: Surgically absent RIGHT KIDNEY AND URETER: No suspicious masses. Assessment limited by lack of IV contrast. No signif icant calcifications. No hydronephrosis or hydroureter. LEFT KIDNEY AND URETER: No suspicious masses. Assessment limited by lack of IV contrast. 4 mm and 2 mm left lower pole intrarenal nonobstructive stones. No hydronephrosis or hydroureter. AORTA AND RETROPERITONEUM: No aneurysm. No retroperitoneal masses or adenopathy. BOWEL AND PERITONEAL CAVITY: No obvious masses or inflammatory changes. No free fluid. Few colonic d iverticuli without CT signs of acute diverticulitis. APPENDIX: Normal. PELVIS, BLADDER, AND ABDOMINAL WALL:Post hysterectomy. Urinary bladder unremarkable. Sigmoid colon diverticuli without CT signs of diverticulitis. No pelvic masses or adenopathy. No free fluid. Int act midline infraumbilical anterior abdominal wall laparoscopic hernia repair BONES: Subtle lytic permeative pattern in the bony pelvis and proximal femurs on coronal images 34-58 . Findings are worrisome for myeloma or myeloproliferative process OTHER: No other significant finding. IMPRESSION: No acute findings. No CT evidence of acute diverticulitis or appendicitis. Permeative lytic pattern in the bones of the pelvis and proximal femurs. Question myeloma or other l ymphoproliferative process COMMENT: Quality ID # [id number]: Final reports with documentation of one or more dose reduction techniques (e.g., Automated exposure control, adjustment of the mA and/or kV according to patient size, use of iterative reconstruction technique) TECHNICAL DOCUMENTATION: JOB ID: [id number] [employer]- All Rights Reserved Reading location - IP/workstation name: [email or web address] [id number]
[2017-09-25] MEDS ORDERED: NORMAL SALINE 500 ML IV ONE (16:10)
[2017-09-25] MEDS ORDERED: KETOROLAC TROMETHAMINE INJ/PF 30 MG/1 ML SDV IV ONE (16:11)
[2017-09-25] MEDS ORDERED: ONDANSETRON HCL INJ/PF 4 MG/2 ML SDV IV PRN (16:27)
[2017-09-25] MEDS ORDERED: ACETAMINOPHEN 325 MG TABLET PO PRN (16:27)
[2017-09-25] MEDS ORDERED: OXYCODONE-ACETAMINOPHEN 5-325 MG TABLET PO PRN (16:27)
[2017-09-25] MEDS ORDERED: NORMAL SALINE 1000 ML 1,000 ML IV PRN ×2 (16:27→16:56)
[2017-09-25] MEDS ORDERED: ZOLPIDEM TARTRATE 5 MG TABLET PO PRN (16:27)
[2017-09-25] MEDS ORDERED: GLUCAGON,HUMAN RECOMB 1 MG INJ IM PRN (16:57)
[2017-09-25] MEDS ORDERED: DEXTROSE 40% GEL 15 GM TUBE PO PRN ×2 (16:57)
[2017-09-25] MEDS ORDERED: INSULIN LISPRO 100 UNIT/ML 3 ML VIAL SUBCUT PRN (16:57)
[2017-09-25] MEDS ORDERED: DEXTROSE 50%-WATER 25 GM/50 ML DISP.SYRIN IV PRN ×2 (16:57)
--- NOTE | 2017-09-25 17:23 | PDOC H&P ---
History of Present Illness Admission Date/PCP: HOLLIS DURBIN DO Patient complains of: Complaint offered by her son History of Present Illness: BRENDA ANNE is a 86 year old female was brought to emergency room by her son and grandson from a doctor's office.They present that to the PCPs office because patient had vomiting, poor appetite and diarrhea yesterday. Son made the appointment since he wanted for her to be checked. Accordingly patient had a urinalysis done on by the end of July. No follow-up was performed by her PCPs office. Up when checking patient's medical record it appears that the urine was abnormal back in July and that patient had been carrying an infection since then. Family states that patient had another bout of urinary tract infection back in May which had to be treated. After patient was evaluated at the PCPs office since considering that patient was somewhat confused prompted to recommend for patient to be evaluated in emergency room. While in emergency room patient was evaluated through CT of the abdomen and pelvis since presented with diarrhea. CT scan was relevant because of diverticular disease but also demonstrated lytic lesions suggestive of multiple myeloma or similar entity in the pelvic area and femurs. Family was made aware by ED physician and they would like to proceed with conservative treatment. Patient though admits and points to the pelvic area when complaining about pain. Due to comorbidities and presentation the hospitalist service was consulted and prompted to admit primarily for observation Past Medical History Cardiac Medical History: Reports: Congestive Heart Failure, Hyperlipidema, Hypertension Pulmonary Medical History: Reports: Asthma EENT Medical History: Reports: None Neurological Medical History: Reports: Ischemic CVA Endocrine Medical History: Reports: Diabetes Mellitus Type 2 - Controlled with diet Renal/ Medical History: Reports: None Malignancy Medical History: Reports: None GI Medical History: Reports: Gastroesophageal Reflux Disease Musculoskeltal Medical History: Reports: Arthritis Skin Medical History: Reports: None Psychiatric Medical History: Reports: Depression Traumatic Medical History: Reports: None Hematology: Reports: None Past Surgical History Past Surgical History: Reports: Cholecystectomy, Hysterectomy, Orthopedic Surgery - Bilat Feet, Tonsillectomy Social History Information Source: Relative Lives with: Family Smoking Status: Never Smoker Frequency of Alcohol Use: None Hx Recreational Drug Use: No Hx Prescription Drug Abuse: No - Advance Directive Resuscitation Status: Do Not Resuscitate Family History Family History: DM, Hypertension Parental Family History Reviewed: Yes Children Family History Reviewed: Yes Sibling(s) Family History Reviewed.: Yes Medication/Allergy Home Medications: Albuterol Sulfate [Albuterol Sulfate 2.5mg/3 mL] 1 vial IH Q4 PRN 11/11/13 Fluticasone Propionate [Flonase Nasal [place] 50 Mcg/[place] 16 gm] 1 spray NASL DAILY 11/11/13 Cholecalciferol (Vitamin D3) [Vitamin D3 5000 unit Tablet] 5,000 unit PO DAILY 04/05/14 Folic Acid/Multivit,Iron,Field Producer [One Daily For Women Tablet] 1 each PO DAILY 03/09 Clopidogrel Bisulfate [Plavix 75 mg Tablet] 75 mg PO DAILY #30 tablet 04/07/14 Atorvastatin Calcium [Lipitor 40 mg Tablet] 40 mg PO QHS #30 tablet 12/28/15 Gabapentin [Neurontin 300 mg Capsule] 300 mg PO TID #90 capsule 12/28/15 Diphenhydramine HCl [Benadryl Allergy] 50 mg PO QHS PRN 09/25/17 Losartan Potassium 100 mg PO DAILY 09/25/17 Pantoprazole Sodium 20 mg PO DAILY 09/25/17 Sertraline HCl [Zoloft 50 mg Tablet] 50 mg PO DAILY 09/25/17 Allergies/Adverse Reactions: Iodinated Contrast- Oral and IV Dye [IV Dye, Iodine Containing] Allergy (Severe , Verified 11/12/16 13:17) "Trouble Breathing" aspirin [Aspirin] Allergy (Verified 11/12/16 13:17) bacitracin [Bacitracin] Allergy (Verified 11/12/16 13:17) cephalexin [Cephalexin] Allergy (Verified 11/12/16 13:17) iodine [Iodine] Allergy (Verified 11/12/16 13:17) latex [Latex] Allergy (Verified 11/12/16 13:17) Quinolones Allergy (Verified 11/12/16 13:17) Sulfa (Sulfonamide Antibiotics) Allergy (Verified 11/12/16 13:17) Review of Systems Constitutional: PRESENT: chills. ABSENT: fever(s) Eyes: ABSENT: visual disturbances Ears: ABSENT: hearing changes Nose, Mouth, and Throat: ABSENT: mouth pain, sore throat Cardiovascular: ABSENT: chest pain, dyspnea on exertion Respiratory: ABSENT: cough, dyspnea Gastrointestinal: PRESENT: abdominal pain, diarrhea, nausea Genitourinary: ABSENT: dysuria, hematuria Integumentary: ABSENT: erythema, lesions, pruritus Neurological: PRESENT: dizziness Endocrine: ABSENT: polyphagia, polyuria Physical Exam Vital Signs: Temp Pulse Resp BP Pulse Ox 98.4 F 72 18 125/52 L 09/25/17 11:52 09/25/17 11:52 09/25/17 11:52 09/25/17 11:52 Intake & Output 09/24/17 09/25/17 09/26/17 06:59 06:59 06:59 Weight 66.1 kg Results Laboratory Results: 09/25/17 13:10 09/25/17 13:10 09/25/17 09/25/17 09/25/17 13:10 13:10 13:10 WBC 10.9 H RBC 4.39 Hgb 13.1 Hct 39.2 MCV 89 MCH 29.8 MCHC 33.4 RDW 15.1 H Plt Count 283 Seg Neutrophils % 78.8 H Lymphocytes % 13.6 Monocytes % 6.7 Eosinophils % 0.3 Basophils % 0.6 Absolute Neutrophils 8.6 H Absolute Lymphocytes 1.5 Absolute Monocytes 0.7 Absolute Eosinophils 0.0 Absolute Basophils 0.1 Sodium 141.3 Potassium 4.0 Chloride 98 Carbon Dioxide 29 Anion Gap 14 BUN 22 H Creatinine 0.80 Est GFR ( Amer) > 60 Est GFR (Non-Af Amer) > 60 Glucose 113 H Calcium 9.6 Total Bilirubin 0.3 AST 28 ALT 21 Alkaline Phosphatase 64 Total Protein 6.9 Albumin 4.1 Lipase 69.1 Urine Color YELLOW Urine Appearance SLIGHTLY-CLOUDY Urine pH 5.0 Ur Specific [place] 1.025 Urine Protein 100 H Urine Glucose (UA) NEGATIVE Urine Ketones TRACE H Urine Blood NEGATIVE Urine Nitrite NEGATIVE Ur Leukocyte Esterase LARGE H Urine WBC (Auto) 64 Urine RBC (Auto) 2 Impressions: Abdomen/Pelvis CT 09/25/17 15:15 IMPRESSION: No acute findings. No CT evidence of acute diverticulitis or appendicitis. Permeative lytic pattern in the bones of the pelvis and proximal femurs. Question myeloma or other lymphoproliferative process Assessment & Plan - Diagnosis (1) UTI (urinary tract infection) Qualifiers: Urinary tract infection type: site unspecified Hematuria presence: without hematuria Qualified Code(s): N39.0 - Urinary tract infection, site not specified Is this a current diagnosis for this admission?: Yes Plan: Family is only able to test as far as the allergy for Bactrim which was difficulty breathing and some hives. Otherwise unable to tell reaction with some other antibiotics. Made aware that we will try an antibiotic which hopefully will cover infection in a controlled environment. To start meropenem (2) Confusion associated with infection Is this a current diagnosis for this admission?: Yes Plan: Patient mildly confused and likely relates to infection however patient is also having pain in the pelvic area. Will hydrate gently and provide pain management (3) Lytic bone lesions on xray Is this a current diagnosis for this admission?: Yes Plan: This is an incidental finding. I have been informed that family wanted conservative treatment for now will provide pain management. Will consult case management for hospice (4) Vomiting and diarrhea Is this a current diagnosis for this admission?: Yes Plan: May relate to ongoing infection. Will provide antiemetics. To place patient on probiotics and fiber (5) Dizziness Is this a current diagnosis for this admission?: Yes Plan: Likely multifactorial. - Time Time Spent: 30 to 50 Minutes Medications reviewed and adjusted accordingly: Yes Anticipated discharge: Hospice Within: within 24 hours - Inpatient Certification Based on my medical assessment, after consideration of the patient's comorbidities, presenting symptoms, or acuity I expect that the services needed warrant INPATIENT care.: No I certify that my determination is in accordance with my understanding of Medicare's requirements for reasonable and necessary INPATIENT services [42 CFR 412.3e].: Yes Medical Necessity: Significant Comorbidiites Make Outpatient Treatment Too Risky , Need Close Monitoring Due to Risk of Patient Decompensation, Need For IV Fluids, Need for IV Antibiotics
[2017-09-25] MEDS: LACTOBACILLUS ACIDOPHILUS 250 MG TAB PO SCH (17:52)
[2017-09-25] MEDS: PSYLLIUM SEED-SF 5.85 GM PACKET PO SCH (18:49)
[2017-09-25] MEDS: MEROPENEM 500 MG in NORMAL SALINE 50 ML IV SCH (23:33)
[2017-09-25] MEDS: HEPARIN SOD (PORCINE) 5,000 UNIT/ML 1 ML SYRINGE SUBCUT SCH (23:37)
[2017-09-26] MEDS: HEPARIN SOD (PORCINE) 5,000 UNIT/ML 1 ML SYRINGE SUBCUT SCH ×2 (05:02→13:52)
[2017-09-26 06:40] LABS: ABSOLUTE EOSINOPHILS # (AUTO) 0.1 10^3/uL (0.0-0.6); ABSOLUTE LYMPHOCYTES (AUTO) 2.2 10^3/uL (0.5-4.7); ABSOLUTE MONOCYTES (AUTO) 0.7 10^3/uL (0.1-1.4); ABSOLUTE NEUT (AUTO) 4.4 10^3/uL (1.7-8.2); BASOPHILS % (AUTO) 0.6 % (0-2); EOSINOPHILS % (AUTO) 1.3 % (0-6); HEMATOCRIT 31.2 % (36.0-47.0); LYMPHOCYTES % (AUTO) 30.1 % (13-45); MEAN CORPUSCULAR HEMOGLOBIN 30.5 pg (27.0-33.4); MEAN CORPUSCULAR HGB CONC 34.4 g/dL (32.0-36.0); MEAN CORPUSCULAR VOLUME 89 fl (80-97); MONOCYTES % (AUTO) 8.9 % (3-13); PLATELET COUNT 238 10^3/uL (150-450); RED BLOOD COUNT 3.52 10^6/uL (3.72-5.28); RED CELL DISTRIBUTION WIDTH 15.2 % (11.5-14.0); SEGMENTED NEUTROPHILS % (AUTO) 59.1 % (42-78); TOTAL CELLS COUNTED % (AUTO) 100 %; WHITE BLOOD COUNT 7.4 10^3/uL (4.0-10.5)
[2017-09-26 06:49] LABS: ANION GAP 8 (5-19); BLOOD UREA NITROGEN 16 mg/dL (7-20); CALCIUM 8.5 mg/dL (8.4-10.2); CARBON DIOXIDE 28 mmol/L (22-30); CHLORIDE 104 mmol/L (98-107); GLUCOSE 83 mg/dL (75-110); POTASSIUM 3.8 mmol/L (3.6-5.0); SODIUM 140.3 mmol/L (137-145)
[2017-09-26 06:57] LABS: HEMOGLOBIN 10.7 g/dL (12.0-15.5)
[2017-09-26] MEDS: PSYLLIUM SEED-SF 5.85 GM PACKET PO SCH ×2 (09:47→17:08)
[2017-09-26] MEDS: LACTOBACILLUS ACIDOPHILUS 250 MG TAB PO SCH ×2 (09:47→17:09)
[2017-09-26] MEDS: MEROPENEM 500 MG in NORMAL SALINE 50 ML IV SCH (09:47)
[2017-09-26] MEDS ORDERED: NITROFURANTOIN MONOHYD/M-CRYST 100 MG CAPSULE PO ONE (11:15)
[2017-09-26] MEDS ORDERED: NITROFURANTOIN MONOHYD/M-CRYST 100 MG CAPSULE PO SCH (17:00)
[2017-09-26 18:22] VITALS: BP 128/53
[2017-09-26] MEDS ORDERED: CEFUROXIME 500 MG TABLET PO SCH (22:00)
--- NOTE | 2017-09-27 05:57 | PDOC DISCHARGE SUMMARY ---
General - Admit/Disc Date/PCP Admission Date/Primary Care Provider: 09/25/17 16:52 HOLLIS DURBIN, DO Discharge Date: 09/26/17 - Discharge Diagnosis (1) UTI (urinary tract infection) Is this a current diagnosis for this admission?: Yes (2) Confusion associated with infection Is this a current diagnosis for this admission?: Yes (3) Lytic bone lesions on xray Is this a current diagnosis for this admission?: Yes (4) Vomiting and diarrhea Is this a current diagnosis for this admission?: Yes (5) Dizziness Is this a current diagnosis for this admission?: Yes - Additional Information Resuscitation Status: Do Not Resuscitate Discharge Diet: Diabetic Discharge Activity: Activity As Tolerated Prescriptions: Nitrofurantoin Monohyd/M-Cryst [Macrobid 100 mg Capsule] 100 mg PO BID #14 capsule Home Medications: Fluticasone Propionate [Flonase Nasal [place] 50 Mcg/[place] 16 gm] 1 spray NAREB DAILY 11/11/13 Clopidogrel Bisulfate [Plavix 75 mg Tablet] 75 mg PO DAILY #30 tablet 04/07/14 Atorvastatin Calcium [Lipitor 40 mg Tablet] 40 mg PO QHS #30 tablet 12/28/15 Diphenhydramine HCl [Benadryl Allergy] 50 mg PO HSP PRN 09/25/17 Gabapentin [Neurontin 300 mg Capsule] 300 mg PO Q8 09/25/17 Losartan Potassium 100 mg PO DAILY 09/25/17 Metoprolol Tartrate [Lopressor 25 mg Tablet] 25 mg PO DAILY 09/25/17 Pantoprazole Sodium 20 mg PO DAILY 09/25/17 Sertraline HCl [Zoloft 50 mg Tablet] 50 mg PO DAILY 09/25/17 Nitrofurantoin Monohyd/M-Cryst [Macrobid 100 mg Capsule] 100 mg PO BID #14 capsule 09/26/17 History of Present Illness History of Present Illness: BRENDA ANNE is a 86 year old female was brought to emergency room by her son and grandson from her doctor's office.They presented to the PCPs office because patient had vomiting, poor appetite and diarrhea for one day. Son made the appointment since he wanted for her to be checked. Accordingly patient had a urinalysis done on by the end of July. No follow-up was performed by her PCPs office. When checking patient's medical record it appears that the urine was abnormal back in July and that patient had been carrying an infection since then. Family stated that patient had another bout of urinary tract infection back in May which had to be treated. After patient was evaluated at the PCPs office since considering that patient was somewhat confused prompted to recommend for patient to be evaluated in emergency room. While in emergency room patient was evaluated through CT of the abdomen and pelvis since presented with diarrhea. CT scan was relevant because of diverticular disease but also demonstrated lytic lesions suggestive of multiple myeloma or similar entity in the pelvic area and femurs. Family was made aware by ED physician and they opted to proceed with conservative treatment. Patient though admitted and pointed to the pelvic area when complaining about pain. Due to comorbidities and presentation the hospitalist service was consulted and prompted to admit primarily for observation Hospital Course Hospital Course: Patient was admitted under the hospitalist service. Patient has reported allergies to multiple antibiotics. When trying to retrieve further information , patient and family were not able to provide information regarding the nature of the allergies. She was placed on meropenem and tolerated this medication well. However, on the day of discharge prompted to place her on nitrofurantoin. Recommend primary care provider to follow-up final results of urine culture since preliminary results demonstrated mixed ulises. Is quite feasible that some of the complaints may relate to the lytic lesions in the pelvic area. Diarrhea resolved by placing her on lactobacillus and Metamucil. Patient was evaluated by physical therapy and patient ambulated well with assistance of a walker. Since patient was stable and had achieved maximum benefit of hospitalization stay prompted to discharge Physical Exam Vital Signs: Temp Pulse Resp BP Pulse Ox 97.6 F 65 16 114/42 L 98 09/25/17 19:41 09/25/17 19:41 09/25/17 23:14 09/25/17 23:14 09/25/17 23:14 Intake & Output 09/25/17 09/26/17 09/27/17 06:59 06:59 06:59 Weight 58.1 kg General appearance: PRESENT: no acute distress, cooperative, well-developed, well-nourished Head exam: PRESENT: atraumatic, normocephalic Eye exam: PRESENT: conjunctiva pink, EOMI, PERRLA Ear exam: PRESENT: normal external ear exam Mouth exam: PRESENT: moist Neck exam: PRESENT: full ROM. ABSENT: JVD, lymphadenopathy, tenderness, thyromegaly Respiratory exam: PRESENT: clear to auscultation keo Cardiovascular exam: PRESENT: RRR. ABSENT: diastolic murmur, systolic murmur Vascular exam: PRESENT: normal capillary refill GI/Abdominal exam: PRESENT: normal bowel sounds, soft. ABSENT: tenderness Extremities exam: PRESENT: full ROM. ABSENT: pedal edema Musculoskeletal exam: PRESENT: ambulatory Neurological exam: PRESENT: alert, awake, oriented to person, oriented to place , oriented to time, oriented to situation, CN II-XII grossly intact Psychiatric exam: PRESENT: appropriate affect, normal mood Skin exam: PRESENT: intact, normal color Results Laboratory Results: 09/26/17 05:48 09/26/17 05:48 09/26/17 09/26/17 05:48 05:48 WBC 7.4 RBC 3.52 L Hgb 10.7 L D Hct 31.2 L MCV 89 MCH 30.5 MCHC 34.4 RDW 15.2 H Plt Count 238 Seg Neutrophils % 59.1 Lymphocytes % 30.1 Monocytes % 8.9 Eosinophils % 1.3 Basophils % 0.6 Absolute Neutrophils 4.4 Absolute Lymphocytes 2.2 Absolute Monocytes 0.7 Absolute Eosinophils 0.1 Absolute Basophils 0.0 Sodium 140.3 Potassium 3.8 Chloride 104 Carbon Dioxide 28 Anion Gap 8 BUN 16 Creatinine 0.70 Est GFR ( Amer) > 60 Est GFR (Non-Af Amer) > 60 Glucose 83 Calcium 8.5 Impressions: Abdomen/Pelvis CT 09/25/17 15:15 IMPRESSION: No acute findings. No CT evidence of acute diverticulitis or appendicitis. Permeative lytic pattern in the bones of the pelvis and proximal femurs. Question myeloma or other lymphoproliferative process Qualifiers - * PATIENT BEING DISCHARGED WITH ANY OF THE FOLLOWING DIAGNOSIS: No Plan Discharge Plan: Discharge home Time Spent: Less than 30 Minutes
== END 2017-09-26 18:50 | disposition home health service (06) ==
LOC: ER 11:43 → EH 16:52 → 4S 09-26 00:25
PROVIDERS: ADMIT Family Medicine; ATTEND Family Medicine
DX: N39.0 Urinary tract infection, site not specified (principal); R41.0 Disorientation, unspecified; M89.9 Disorder of bone, unspecified; R11.10 Vomiting, unspecified; R19.7 Diarrhea, unspecified; Z66 Do not resuscitate; K57.90 Diverticulosis of intestine, part unspecified, without perforation or abscess without bleeding; K21.9 Gastro-esophageal reflux disease without esophagitis; I11.0 Hypertensive heart disease with heart failure; I50.9 Heart failure, unspecified; R68.83 Chills (without fever); E78.5 Hyperlipidemia, unspecified; R10.2 Pelvic and perineal pain; I69.354 Hemiplegia and hemiparesis following cerebral infarction affecting left non-dominant side; Z87.440 Personal history of urinary (tract) infections; Z88.1 Allergy status to other antibiotic agents; Z90.49 Acquired absence of other specified parts of digestive tract; Z90.710 Acquired absence of both cervix and uterus; Z79.02 Long term (current) use of antithrombotics/antiplatelets; Z79.899 Other long term (current) drug therapy; Z91.041 Radiographic dye allergy status
CPT/HCPCS: 99285; 96372; 96375; 96365; 36415 ×2; 87040; 87086; 82962; 83690; 85025 ×2; 80048; 80053; 81001; 74176; 97116; 97162; J1644 ×2; J3490 ×3; A9270 ×3; J7030; J7040; J2185 ×2; G8978; G8979; J8499

== ENCOUNTER → 2017-10-13 | Outpatient (CLI) | payer MEDICARE, OTHER ==
--- NOTE | 2017-10-14 10:34 | RADIOLOGY REPORT (SQ) ---
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 RADIONUCLIDE AND DOSE: 10.9 mCi F18 FDG The route of agent administration: Intravenous FASTING BLOOD SUGAR: 70 mg/dl CONTRAST TYPE AND DOSE: No CT contrast given. TECHNIQUE: Blood glucose level was verified. Above dose of FDG was injected intravenously. 2-D seg mented attenuation correction images were obtained through the entire body. Noncontrast CT images we re obtained for attenuation correction and fusion with emission images. CT images were performed wit hout oral or intravenous contrast and are not sensitive for parenchymal lesions. A series of overlap ping emission PET images were obtained. Images reviewed and manipulated at independent work station by the radiologist. Images stored on PACS. LIMITATIONS: None. FINDINGS: HEAD AND NECK: No areas of abnormal metabolic activity in the soft tissues of the head and neck. CHEST: No areas of abnormal metabolic activity in the chest. ABDOMEN AND PELVIS: No areas of abnormal metabolic activity in the abdomen or pelvis. Expected physi ologic activity is present in the genitourinary system and bowel. LOWER EXTREMITIES: No areas of abnormal metabolic activity in the soft tissues of the lower extremiti es. BONES: No abnormal metabolic activity in the visualized skeleton. ADDITIONAL CT FINDINGS: Degenerative disc changes throughout the spine. Calcified coronary arteries and mitral valve. Hysterectomy oophorectomy cholecystectomy. Colon diverticuli without CT signs of acute diverticulitis. Intact midline infra abdominal ventral hernia repair. OTHER: There are background SUV 2.4. Blood pool background activity 2.2. IMPRESSION: No hypermetabolic lesions over the whole body worrisome for primary malignancy. TECHNICAL DOCUMENTATION: JOB ID: [id number]- All Rights Reserved Reading location - IP/workstation name: [facility]-[email or web address]
== END ==
LOC: RAD 16:01
PROVIDERS: ATTEND Internal Medicine
DX: C90.00 Multiple myeloma not having achieved remission (principal)
CPT/HCPCS: 78816; A9552

== ENCOUNTER 2017-10-29 12:07 | Emergency (ER) | payer MEDICARE, OTHER ==
--- NOTE | 2017-10-29 12:38 | ER Document Report ---
ED Medical Screen (RME) - General Chief Complaint: Urinary Problem Stated Complaint: PAINFUL URINATION Time Seen by Provider: 10/29/17 12:33 Notes: RAPID MEDICAL EVALUATION DISCLOSURE I have seen this patient as part of a Rapid Medical Evaluation and, if applicable, placed any initially appropriate orders. The patient will be seen and fully evaluated, including a full history and physical exam, by a provider ( in Main ED or Fast Track) when a room becomes available. 86-year-old female here with complaints of altered mental status and UTI ongoing for the past 2 days. Son states that he has noticed over the past few days she has not been conversational as usual. She has been sitting on the edge of the bed and rocking back and forth. These are the symptoms she exhibits when she has a UTI. She was admitted to the hospital here recently and discharged on antibiotics for UTI. They were sent here by their doctor, Dr. Stauffer, for evaluation of this altered mental status. EXAM Mild diffuse TTP but most prominent in suprapubic region Alert, but not oriented TRAVEL OUTSIDE OF THE [place] IN LAST 30 DAYS: No - Related Data Allergies/Adverse Reactions: Iodinated Contrast- Oral and IV Dye [IV Dye, Iodine Containing] Allergy (Severe , Verified 11/12/16 13:17) "Trouble Breathing" aspirin [Aspirin] Allergy (Verified 11/12/16 13:17) bacitracin [Bacitracin] Allergy (Verified 11/12/16 13:17) cephalexin [Cephalexin] Allergy (Verified 11/12/16 13:17) iodine [Iodine] Allergy (Verified 11/12/16 13:17) latex [Latex] Allergy (Verified 11/12/16 13:17) Quinolones Allergy (Verified 11/12/16 13:17) Sulfa (Sulfonamide Antibiotics) Allergy (Verified 11/12/16 13:17) Past Medical History - Past Medical History Cardiac Medical History: Reports: Hx Congestive Heart Failure, Hx Hypercholesterolemia, Hx Hypertension Pulmonary Medical History: Reports: Hx Asthma Neurological Medical History: Reports: 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, 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 Endocrine Medical History: Reports: Hx Diabetes Mellitus Type 2 - Controlled with diet Renal/ Medical History: Denies: Hx Peritoneal Dialysis GI Medical History: Reports: Hx Gastroesophageal Reflux Disease Musculoskeltal Medical History: Reports Hx Arthritis Psychiatric Medical History: Reports: Hx Depression Past Surgical History: Reports: Hx Cholecystectomy, Hx Hysterectomy, Hx Orthopedic Surgery - Bilat Feet, Hx Tonsillectomy - Immunizations Hx Diphtheria, Pertussis, Tetanus Vaccination: Yes Physical Exam - Vital signs Vitals: Resp BP 18 169/55 H 10/29/17 12:14 10/29/17 12:14 Course - Vital Signs Vital signs: Temp Pulse Resp BP Pulse Ox 18 169/55 H 10/29/17 12:14 10/29/17 12:14 Doctor's Discharge - Discharge Referrals: LUDWIG DYSON MD [Primary Care Provider] - Follow up as needed
[2017-10-29 13:51] LABS: ABSOLUTE EOSINOPHILS # (AUTO) 0.1 10^3/uL (0.0-0.6); ABSOLUTE LYMPHOCYTES (AUTO) 1.1 10^3/uL (0.5-4.7); ABSOLUTE MONOCYTES (AUTO) 0.5 10^3/uL (0.1-1.4); ABSOLUTE NEUT (AUTO) 5.2 10^3/uL (1.7-8.2); BASOPHILS % (AUTO) 0.5 % (0-2); EOSINOPHILS % (AUTO) 0.8 % (0-6); HEMATOCRIT 38.3 % (36.0-47.0); HEMOGLOBIN 12.9 g/dL (12.0-15.5); LYMPHOCYTES % (AUTO) 16.1 % (13-45); MEAN CORPUSCULAR HEMOGLOBIN 30.6 pg (27.0-33.4); MEAN CORPUSCULAR HGB CONC 33.7 g/dL (32.0-36.0); MEAN CORPUSCULAR VOLUME 91 fl (80-97); MONOCYTES % (AUTO) 6.7 % (3-13); PLATELET COUNT 264 10^3/uL (150-450); RED BLOOD COUNT 4.22 10^6/uL (3.72-5.28); RED CELL DISTRIBUTION WIDTH 15.9 % (11.5-14.0); SEGMENTED NEUTROPHILS % (AUTO) 75.9 % (42-78); TOTAL CELLS COUNTED % (AUTO) 100 %; WHITE BLOOD COUNT 6.8 10^3/uL (4.0-10.5)
[2017-10-29 14:12] LABS: ALANINE AMINOTRANSFERASE 22 U/L (9-52); ALBUMIN 4.1 g/dL (3.5-5.0); ALKALINE PHOSPHATASE 62 U/L (38-126); ANION GAP 9 (5-19); ASPARTATE AMINO TRANSFERASE 30 U/L (14-36); BILIRUBIN,DIRECT 0.3 mg/dL (0.0-0.4); BILIRUBIN,TOTAL 0.6 mg/dL (0.2-1.3); BLOOD UREA NITROGEN 14 mg/dL (7-20); CARBON DIOXIDE 31 mmol/L (22-30); CHLORIDE 99 mmol/L (98-107); GLUCOSE 104 mg/dL (75-110); LIPASE 55.5 U/L (23-300); POTASSIUM 4.6 mmol/L (3.6-5.0); SODIUM 139.1 mmol/L (137-145); TOTAL PROTEIN 7.5 g/dL (6.3-8.2)
--- NOTE | 2017-10-29 14:21 | ER Document Report ---
ED GI/ <MUSAONOFRE Wilks - Last Filed: 10/29/17 17:15> - General Mode of Arrival: Wheelchair Information source: Relative TRAVEL OUTSIDE OF THE [place] IN LAST 30 DAYS: No <LUIS F BECKFORD - Last Filed: 10/29/17 22:16> - General Chief Complaint: Urinary Problem Stated Complaint: PAINFUL URINATION Time Seen by Provider: 10/29/17 12:33 Notes: 86 y.o female with HTN, HLD, GERD and dementia presents to the ED with dysuria, "strong smelling" urine, abd pain and AMS of onset last , 10/24/17. Son at bedside reports that the patient was recently discharged from the hospital on antibiotics to treat a UTI which son states she has finished completely. Son at bedside denies any known fevers. He also doesn't know if she has had any problems with BMs because she has not complained of such, but he states that she did have a small stool in the toilet yesterday. Pt's PCP is Dr. Stauffer who referred her here today for AMS. Pt was admitted on August 26 for UTI and at the time they did a Abd/Pelvis CT for abd pain and found a lytic lesions in the pelvis and proximal femurs. Since then she has seen an oncologist who does not think the lesions are myeloma. Pt had a PET scan on October 13 that did not show hypermetabolic lesions. Patient has an orthopedic appointment scheduled for 11/23/17 to discuss the lytic lesions. Pt has a PSHx of periumbilical hernia repair, hysterectomy and cholecystectomy. (LUIS F BECKFORD) - Related Data Allergies/Adverse Reactions: Iodinated Contrast- Oral and IV Dye [IV Dye, Iodine Containing] Allergy (Severe , Verified 10/29/17 12:37) "Trouble Breathing" aspirin [Aspirin] Allergy (Verified 10/29/17 12:37) bacitracin [Bacitracin] Allergy (Verified 10/29/17 12:37) cephalexin [Cephalexin] Allergy (Verified 10/29/17 12:37) iodine [Iodine] Allergy (Verified 10/29/17 12:37) latex [Latex] Allergy (Verified 10/29/17 12:37) Quinolones Allergy (Verified 10/29/17 12:37) Sulfa (Sulfonamide Antibiotics) Allergy (Verified 10/29/17 12:37) Past Medical History - General Information source: Relative - Social History Smoking Status: Former Smoker Chew tobacco use (# tins/day): No Frequency of alcohol use: None Drug Abuse: None Family History: DM, Hypertension Patient has suicidal ideation: No Patient has homicidal ideation: No - Past Medical History Cardiac Medical History: Reports: Hx Congestive Heart Failure, Hx Hypercholesterolemia, Hx Hypertension Pulmonary Medical History: Reports: Hx Asthma Neurological Medical History: Reports: 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, 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 Endocrine Medical History: Reports: Hx Diabetes Mellitus Type 2 - Controlled with diet Renal/ Medical History: Denies: Hx Peritoneal Dialysis GI Medical History: Reports: Hx Gastroesophageal Reflux Disease Musculoskeltal Medical History: Reports Hx Arthritis Psychiatric Medical History: Reports: Hx Depression Past Surgical History: Reports: Hx Cholecystectomy, Hx Hysterectomy, Hx Orthopedic Surgery - Bilat Feet, Hx Tonsillectomy, Hx Umbilical Hernia - Immunizations Hx Diphtheria, Pertussis, Tetanus Vaccination: Yes Hx Pneumococcal Vaccination: 05/27/08 <LUIS F BECKFORD - Last Filed: 10/29/17 22:16> Review of Systems - Review of Systems Constitutional: denies: Fever EENT: No symptoms reported Cardiovascular: No symptoms reported Respiratory: No symptoms reported Gastrointestinal: See HPI, Abdominal pain, Other - BM yesterday Genitourinary: See HPI, Dysuria, Other - "strong smelling" urine Female Genitourinary: No symptoms reported Musculoskeletal: No symptoms reported Skin: No symptoms reported Hematologic/Lymphatic: No symptoms reported Neurological/Psychological: See HPI - AMS -: Yes All other systems reviewed and negative <LUIS F BECKFORD - Last Filed: 10/29/17 22:16> Physical Exam <ONOFRE VIGIL - Last Filed: 10/29/17 17:15> <LUIS F BECKFORD - Last Filed: 10/29/17 22:16> - Vital signs Vitals: Resp BP 18 169/55 H 10/29/17 12:14 10/29/17 12:14 - Notes Notes: Physical Exam: General: Alert, awake. Non-talkative. HEENT: Normocephalic. Atraumatic. PERRL. Extraocular movements intact. Oropharynx clear. Neck: Supple. Non-tender. Respiratory: No respiratory distress. Clear and equal breath sounds bilaterally. Cardiovascular: Regular rate and rhythm. Abdominal: Soft. Diffusely TTP, feels as if there is a hernia to the right of the umbilicus. No distension. Normal Bowel Sounds. Back: Non-tender. No deformity or step off. Extremities: Moves all four extremities. Upper extremities: Normal inspection. Normal ROM. Lower extremities: Normal inspection. No edema. Normal ROM. Neurological: Alert, awake. Psychological: Normal affect. Normal Mood. Skin: Warm. Dry. Normal color. (LUIS F BECKFORD) Course - Laboratory Result Diagrams: 10/29/17 12:57 10/29/17 12:57 - Diagnostic Test Radiology reviewed: Image reviewed - Nothing acute, a lot of stool in the rectal vault <ONOFRE VIGIL - Last Filed: 10/29/17 17:15> - Laboratory Result Diagrams: 10/29/17 12:57 10/29/17 12:57 <LUIS F BECKFORD - Last Filed: 10/29/17 22:16> - Re-evaluation Re-evalutation: 10/29/17 17:15 The patient passed a large formed stool with the enema, and stated she felt better. (ONOFRE VIGIL) - Vital Signs Vital signs: Temp Pulse Resp BP Pulse Ox 97.9 F 10 L 137/48 H 82 L 10/29/17 17:00 10/29/17 17:26 10/29/17 17:26 10/29/17 17:25 - Laboratory Laboratory results interpreted by me: 10/29/17 10/29/17 10/29/17 12:57 12:57 14:59 RDW 15.9 H Carbon Dioxide 31 H Urine Protein 30 H Urine Ketones TRACE H Urine Urobilinogen 2.0 H Ur Leukocyte Esterase MODERATE H Urine Ascorbic Acid 20 H Discharge <ONOFRE VIGIL - Last Filed: 10/29/17 17:15> <LUIS F BECKFORD - Last Filed: 10/29/17 22:16> - Discharge Clinical Impression: Urinary tract infection Qualifiers: Urinary tract infection type: site unspecified Hematuria presence: without hematuria Qualified Code(s): N39.0 - Urinary tract infection, site not specified Constipation Qualifiers: Constipation type: unspecified constipation type Qualified Code(s): K59.00 - Constipation, unspecified Dementia Qualifiers: Dementia type: unspecified type Dementia behavioral disturbance: without behavioral disturbance Qualified Code(s): F03.90 - Unspecified dementia without behavioral disturbance Condition: Stable Disposition: HOME, SELF-CARE Additional Instructions: Urinary Tract Infection: Your evaluation indicates that you have a urinary tract infection. This is due to germs growing in the bladder. This is a common problem. This infection usually responds quickly to antibiotics. Your antibiotic should be taken exactly as prescribed. Drink plenty of fluids -- three to four quarts a day. Occasionally, a bladder anesthetic will be prescribed to help stop the feeling of urgency until the antibiotic has a chance to clear the infection. This may cause your urine to be dark orange. Certain urine infections require a culture. If the doctor obtained a culture, the results will be back in two days. You should call to see if a change in treatment is needed. A repeat urinalysis after you finish treatment is often recommended. The physician will let you know if further testing is required. Call the doctor if you develop fever, chills, flank pain, inability to urinate, or blood in the urine. Take medications as prescribed. Plenty of fluids. Follow-up with your doctor if not improving. RETURN TO THE EMERGENCY ROOM IF ANY NEW OR WORSENING SYMPTOMS. Prescriptions: Doxycycline Hyclate 100 mg PO BID #10 tablet Referrals: LUDWIG DYSON MD [ACTIVE STAFF] - Follow up as needed Scribe Attestation: 10/29/17 15:06 I personally performed the services described in the documentation, reviewed and edited the documentation which was dictated to the scribe in my presence, and it accurately records my words and actions. (ONOFRE VIGIL) Scribe Documentation - Scribe Written by Shelly:: Shelly Arora [id number] 10/29/17 acting as scribe for :: Musa <LUIS F BECKFORD - Last Filed: 10/29/17 22:16>
[2017-10-29 15:27] LABS: APPEARANCE,URINE SLIGHTLY-CLOUDY; BILIRUBIN,URINE NEGATIVE (NEGATIVE); COLOR,URINE YELLOW; GLUCOSE, URINE NEGATIVE (NEGATIVE); KETONES,URINE TRACE mg/dL (NEGATIVE); LEUKOCYTE ESTERASE,URINE MODERATE (NEGATIVE); NITRITE,URINE NEGATIVE (NEGATIVE); PROTEIN,URINE 30 mg/dL (NEGATIVE); URINE SPECIFIC GRAVITY 1.016
[2017-10-29] MEDS ORDERED: MINERAL OIL 30 ML UDCUP PR ONE (15:46)
--- NOTE | 2017-10-29 15:53 | RADIOLOGY REPORT (SQ) ---
EXAM DESCRIPTION: KUB/ABDOMEN (SINGLE VIEW) COMPLETED DATE/TIME: 10/29/2017 3:41 pm REASON FOR STUDY: Abdominal pain, constipation COMPARISON: None. NUMBER OF VIEWS: One view. TECHNIQUE: Supine radiographic image of the abdomen acquired. LIMITATIONS: None. FINDINGS: BOWEL GAS PATTERN: Normal bowel gas pattern. No dilated loops. CALCIFICATIONS: No suspicious calcifications. SOFT TISSUES: No gross mass or suggestion of organomegaly. HARDWARE: Surgical clips. BONES: No acute fracture. Degenerative changes in the spine and hips. No worrisome bone lesions. OTHER: No other significant finding. IMPRESSION: NO RADIOGRAPHIC EVIDENCE FOR ACUTE ABDOMINAL DISEASE. TECHNICAL DOCUMENTATION: JOB ID: [id number] [employer]- All Rights Reserved Reading location - IP/workstation name: [email or web address]
[2017-10-29] MEDS ORDERED: DOXYCYCLINE HYCLATE 100 MG TABLET PO ONE (16:43)
[2017-10-29 17:38] VITALS: BP 137/48
== END 2017-10-29 17:38 | disposition home or self-care (01) ==
LOC: ER 12:07
DX: N39.0 Urinary tract infection, site not specified (principal); K59.00 Constipation, unspecified; R41.82 Altered mental status, unspecified; I10 Essential (primary) hypertension; J45.909 Unspecified asthma, uncomplicated; E11.9 Type 2 diabetes mellitus without complications; Z91.041 Radiographic dye allergy status; Z88.6 Allergy status to analgesic agent; Z88.1 Allergy status to other antibiotic agents; Z91.040 Latex allergy status; Z88.2 Allergy status to sulfonamides; Z87.891 Personal history of nicotine dependence
CPT/HCPCS: 99284; 51701; 36415; 87040; 87086; 83690; 85025; 87088; 80053; 81001; 87186; 83605; 74018; A9270; J3490

== ENCOUNTER 2017-11-18 15:04 | Emergency (ER) | payer MEDICARE, OTHER ==
[2017-11-18] MEDS ORDERED: ONDANSETRON 4 MG TAB.RAPDIS PO ONE (15:53)
--- NOTE | 2017-11-18 15:54 | ER Document Report ---
ED Medical Screen (RME) - General Chief Complaint: Abdominal Pain Stated Complaint: DIZZY,VOMITING,ABDOMINAL PAIN Time Seen by Provider: 11/18/17 15:50 Notes: 87-year-old female patient onset yesterday of nausea, vomiting, diarrhea, with headache and dizziness when she tries to get up. She was seen here about 3 weeks ago with urinary tract infection. There is no history of fever. Patient denies having had any pain. I have greeted and performed a rapid initial assessment of this patient. A comprehensive ED assessment and evaluation of the patient, analysis of test results and completion of the medical decision making process will be conducted by additional ED providers. TRAVEL OUTSIDE OF THE [place] IN LAST 30 DAYS: No - Related Data Allergies/Adverse Reactions: Iodinated Contrast- Oral and IV Dye [IV Dye, Iodine Containing] Allergy (Severe , Verified 11/18/17 15:47) "Trouble Breathing" aspirin [Aspirin] Allergy (Verified 11/18/17 15:47) bacitracin [Bacitracin] Allergy (Verified 11/18/17 15:47) cephalexin [Cephalexin] Allergy (Verified 11/18/17 15:47) iodine [Iodine] Allergy (Verified 11/18/17 15:47) latex [Latex] Allergy (Verified 11/18/17 15:47) Quinolones Allergy (Verified 11/18/17 15:47) Sulfa (Sulfonamide Antibiotics) Allergy (Verified 11/18/17 15:47) Past Medical History - Social History Chew tobacco use (# tins/day): No Frequency of alcohol use: None Drug Abuse: None - Past Medical History Cardiac Medical History: Reports: Hx Congestive Heart Failure, Hx Hypercholesterolemia, Hx Hypertension Pulmonary Medical History: Reports: Hx Asthma Neurological Medical History: Reports: 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, 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 Endocrine Medical History: Reports: Hx Diabetes Mellitus Type 2 - Controlled with diet Renal/ Medical History: Denies: Hx Peritoneal Dialysis GI Medical History: Reports: Hx Gastroesophageal Reflux Disease Musculoskeltal Medical History: Reports Hx Arthritis Psychiatric Medical History: Reports: Hx Depression Past Surgical History: Reports: Hx Cholecystectomy, Hx Hysterectomy, Hx Orthopedic Surgery - Bilat Feet, Hx Tonsillectomy, Hx Umbilical Hernia - Immunizations Hx Diphtheria, Pertussis, Tetanus Vaccination: Yes Physical Exam - Vital signs Vitals: Temp Pulse Resp BP Pulse Ox 97.6 F 71 18 150/47 H 100 11/18/17 15:12 11/18/17 15:12 11/18/17 15:12 11/18/17 15:12 11/18/17 15:12 Course - Vital Signs Vital signs: Temp Pulse Resp BP Pulse Ox 97.6 F 71 18 150/47 H 100 11/18/17 15:12 11/18/17 15:12 11/18/17 15:12 11/18/17 15:12 11/18/17 15:12 Doctor's Discharge - Discharge Referrals: HOLLIS DURBIN, [Primary Care Provider] - Follow up as needed
[2017-11-18 16:30] LABS: ABSOLUTE BASOPHILS # (AUTO) 0.1 10^3/uL (0.0-0.2); ABSOLUTE LYMPHOCYTES (AUTO) 1.3 10^3/uL (0.5-4.7); ABSOLUTE MONOCYTES (AUTO) 0.6 10^3/uL (0.1-1.4); ABSOLUTE NEUT (AUTO) 5.3 10^3/uL (1.7-8.2); BASOPHILS % (AUTO) 0.8 % (0-2); EOSINOPHILS % (AUTO) 0.6 % (0-6); HEMATOCRIT 31.9 % (36.0-47.0); HEMOGLOBIN 10.7 g/dL (12.0-15.5); LYMPHOCYTES % (AUTO) 17.7 % (13-45); MEAN CORPUSCULAR HEMOGLOBIN 29.6 pg (27.0-33.4); MEAN CORPUSCULAR HGB CONC 33.5 g/dL (32.0-36.0); MEAN CORPUSCULAR VOLUME 89 fl (80-97); MONOCYTES % (AUTO) 8.5 % (3-13); PLATELET COUNT 399 10^3/uL (150-450); RED CELL DISTRIBUTION WIDTH 15.3 % (11.5-14.0); SEGMENTED NEUTROPHILS % (AUTO) 72.4 % (42-78); TOTAL CELLS COUNTED % (AUTO) 100 %; WHITE BLOOD COUNT 7.3 10^3/uL (4.0-10.5)
[2017-11-18 16:44] LABS: ALANINE AMINOTRANSFERASE 23 U/L (9-52); ALBUMIN 3.8 g/dL (3.5-5.0); ALKALINE PHOSPHATASE 66 U/L (38-126); ANION GAP 14 (5-19); ASPARTATE AMINO TRANSFERASE 24 U/L (14-36); BILIRUBIN,DIRECT 0.5 mg/dL (0.0-0.4); BILIRUBIN,TOTAL 0.5 mg/dL (0.2-1.3); BLOOD UREA NITROGEN 23 mg/dL (7-20); CALCIUM 9.6 mg/dL (8.4-10.2); CARBON DIOXIDE 27 mmol/L (22-30); CHLORIDE 100 mmol/L (98-107); GLUCOSE 91 mg/dL (75-110); POTASSIUM 4.5 mmol/L (3.6-5.0); TOTAL PROTEIN 6.7 g/dL (6.3-8.2)
[2017-11-18] MEDS ORDERED: RINGERS SOLUTION,LACTATED 500 ML IV ONE (18:54)
--- NOTE | 2017-11-18 18:55 | ER Document Report ---
ED General - General Chief Complaint: Abdominal Pain Stated Complaint: DIZZY,VOMITING,ABDOMINAL PAIN Time Seen by Provider: 11/18/17 15:50 Notes: The patient is an 87-year old female with history of recurrent urinary tract infections, hypertension, hyperlipidemia, diabetes type 2, and a prior CVA who presents with 2 days of nausea, diarrhea, and intermittent abdominal cramping. Patient reports that the abdominal pain as an intermittent, cramping, moderate to severe pain but does spontaneously resolved. She notes that it seems to be related to when she is about to have a diarrheal bowel movement. Nothing seems to improve or worsen her symptoms. The patient reports that she has had some nausea but no vomiting. She was seen by her primary care doctor today who referred her to the emergency department for further assessment. She denies a recent history of similar symptoms. She denies any chest pain, shortness of breath, fever or constitutional symptoms. TRAVEL OUTSIDE OF THE [place] IN LAST 30 DAYS: No - Related Data Allergies/Adverse Reactions: Iodinated Contrast- Oral and IV Dye [IV Dye, Iodine Containing] Allergy (Severe , Verified 11/18/17 15:47) "Trouble Breathing" aspirin [Aspirin] Allergy (Verified 11/18/17 15:47) bacitracin [Bacitracin] Allergy (Verified 11/18/17 15:47) cephalexin [Cephalexin] Allergy (Verified 11/18/17 15:47) iodine [Iodine] Allergy (Verified 11/18/17 15:47) latex [Latex] Allergy (Verified 11/18/17 15:47) Quinolones Allergy (Verified 11/18/17 15:47) Sulfa (Sulfonamide Antibiotics) Allergy (Verified 11/18/17 15:47) Home Medications: son unable to verbalize at triage Past Medical History - General Information source: Patient, Relative - Social History Smoking Status: Former Smoker Chew tobacco use (# tins/day): No Frequency of alcohol use: None Drug Abuse: None Lives with: Family Family History: DM, Hypertension Patient has suicidal ideation: No Patient has homicidal ideation: No - Past Medical History Cardiac Medical History: Reports: Hx Congestive Heart Failure, Hx Hypercholesterolemia, Hx Hypertension Pulmonary Medical History: Reports: Hx Asthma Neurological Medical History: Reports: 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, 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 Endocrine Medical History: Reports: Hx Diabetes Mellitus Type 2 - Controlled with diet Renal/ Medical History: Denies: Hx Peritoneal Dialysis GI Medical History: Reports: Hx Gastroesophageal Reflux Disease Musculoskeltal Medical History: Reports Hx Arthritis Psychiatric Medical History: Reports: Hx Depression Past Surgical History: Reports: Hx Cholecystectomy, Hx Hysterectomy, Hx Orthopedic Surgery - Bilat Feet, Hx Tonsillectomy, Hx Umbilical Hernia - Immunizations Hx Diphtheria, Pertussis, Tetanus Vaccination: Yes Hx Pneumococcal Vaccination: 05/27/08 Review of Systems - Review of Systems Notes: Constitutional: Negative for fever. HENT: Negative for sore throat. Eyes: Negative for visual changes. Cardiovascular: Negative for chest pain. Respiratory: Negative for shortness of breath. Gastrointestinal: Positive for intermittent abdominal cramping, nausea and diarrhea Genitourinary: Negative for dysuria. Musculoskeletal: Negative for back pain. Skin: Negative for rash. Neurological: Negative for headaches, weakness or numbness. 10 point ROS negative except as marked above and in HPI. Physical Exam - Vital signs Vitals: Temp Pulse Resp BP Pulse Ox 97.6 F 71 18 150/47 H 100 11/18/17 15:12 11/18/17 15:12 11/18/17 15:12 11/18/17 15:12 11/18/17 15:12 Interpretation: Hypertensive Notes: PHYSICAL EXAMINATION: GENERAL: Well-appearing, well-nourished and in no acute distress. HEAD: Atraumatic, normocephalic. EYES: Pupils equal round and reactive to light, extraocular movements intact, sclera anicteric, conjunctiva are normal. ENT: nares patent, oropharynx clear without exudates. Moist mucous membranes. NECK: Normal range of motion, supple without lymphadenopathy LUNGS: Breath sounds clear to auscultation bilaterally and equal. No wheezes rales or rhonchi. HEART: Regular rate and rhythm without murmurs ABDOMEN: Soft, nontender, normoactive bowel sounds. No guarding, no rebound. No masses appreciated. EXTREMITIES: Normal range of motion, no pitting or edema. No cyanosis. NEUROLOGICAL: No focal neurological deficits. Moves all extremities spontaneously and on command. PSYCH: Normal mood, normal affect. SKIN: Warm, Dry, normal turgor, no rashes or lesions noted. Course - Re-evaluation Re-evalutation: 11/18/17 18:54 Patient presents with 2 days of vomiting, diarrhea, and intermittent abdominal cramping around the episodes of vomiting or diarrhea. Patient vitals are within normal is at the time of my assessment, labs overall unremarkable without evidence of acute kidney injury, significant leukocytosis or significant anemia. The patient has no focal abdominal tenderness on examination. She is awake, alert, oriented. No focal neurologic deficits. She denies any chest pain or shortness of breath. She has not had any syncopal episodes. Clinical concern will be for possible Clostridium difficile particular given the patient has had 2 course of antibiotics within the past 2 months for a urinary tract infection. A urinary tract infection would be a alternative consideration although it would be atypical for this to present with diarrhea. Urinalysis and stool studies are pending. 11/18/17 23:44 Labs and urine are unremarkable. Stool studies continue to be pending. The patient will be discharged with a prescription for metronidazole and I will contact her and instructed to begin taking this if her C. difficile result comes back positive. The patient has tolerated food and drink here in the emergency department without any difficulty. She has no further abdominal pain. Vitals are within normal limits. The family is requesting to go home at this time point. At this time will discharge with return precautions and follow -up recommendations. Verbal discharge instructions given a the bedside and opportunity for questions given. Medication warnings reviewed. Patient is in agreement with this plan and has verbalized understanding of return precautions and the need for primary care follow-up in the next 24-72 hours. 11/19/17 02:58 I contacted the patient's son Jason and informed him that the C. difficile assay testing is negative. They have been instructed not to begin antibiotics. - Vital Signs Vital signs: Temp Pulse Resp BP Pulse Ox 97.6 F 69 18 148/76 H 95 11/18/17 15:12 11/19/17 00:20 11/19/17 00:20 11/19/17 00:20 11/19/17 00:20 - Laboratory Result Diagrams: 11/18/17 16:10 11/18/17 16:10 Laboratory results interpreted by me: 11/18/17 11/18/17 11/18/17 16:10 16:10 19:00 RBC 3.60 L Hgb 10.7 L Hct 31.9 L RDW 15.3 H BUN 23 H Direct Bilirubin 0.5 H Urine Ketones 20 H Urine Blood SMALL H Urine Ascorbic Acid 20 H Discharge - Discharge Clinical Impression: Abdominal cramping Diarrhea Qualifiers: Diarrhea type: unspecified type Qualified Code(s): R19.7 - Diarrhea, unspecified Condition: Good Disposition: HOME, SELF-CARE Additional Instructions: You will be contacted about the results of your C. difficile study. Your other labs otherwise look well. Return if you have persistent vomiting, worsening abdominal pain, become unable to eat or drink, or have any other symptoms that are worrisome to you. Prescriptions: Metronidazole [Flagyl 500 mg Tablet] 500 mg PO Q6H #40 tablet Referrals: HOLLIS DURBIN DO [Primary Care Provider] - Follow up as needed
[2017-11-18 19:12] LABS: APPEARANCE,URINE CLEAR; BILIRUBIN,URINE NEGATIVE (NEGATIVE); COLOR,URINE YELLOW; GLUCOSE, URINE NEGATIVE (NEGATIVE); KETONES,URINE 20 mg/dL (NEGATIVE); LEUKOCYTE ESTERASE,URINE NEGATIVE (NEGATIVE); NITRITE,URINE NEGATIVE (NEGATIVE); PROTEIN,URINE NEGATIVE (NEGATIVE); UROBILINOGEN,URINE NEGATIVE mg/dL (<2.0)
[2017-11-19 00:23] VITALS: BP 148/76
== END 2017-11-19 00:10 | disposition home or self-care (01) ==
LOC: ER 15:04
DX: R10.9 Unspecified abdominal pain (principal); R19.7 Diarrhea, unspecified; R11.2 Nausea with vomiting, unspecified; I10 Essential (primary) hypertension; E11.9 Type 2 diabetes mellitus without complications; J45.909 Unspecified asthma, uncomplicated; Z87.891 Personal history of nicotine dependence; Z87.19 Personal history of other diseases of the digestive system; Z87.440 Personal history of urinary (tract) infections
CPT/HCPCS: 99284; 96360; 51701; 36415; 87045; 87205; 85025; 80053; 81001; 87493; A9270; J7120; S0119

== ENCOUNTER 2018-01-22 21:57 | Emergency (ER) | payer MEDICARE ==
--- NOTE | 2018-01-22 22:37 | ER Document Report ---
ED Medical Screen (RME) - General Chief Complaint: Head Injury without LOC Stated Complaint: FALL Time Seen by Provider: 01/22/18 22:29 Mode of Arrival: Wheelchair Information source: Patient Notes: Patient is an 87-year-old female who presents with chief complaint of fall and head laceration. Patient has a approximately 5 cm laceration to the front of her head in the hairline. Patient reports she was in a standing position with her walker when she "fell out". Patient denies any dizziness leading up to the event. Patient denies tripping on anything. Patient's son is with her and reports she has had multiple falls lately for no apparent reason. Patient is on Plavix 75 mg daily. Exam: Patient alert, oriented 4 5 cm laceration noted to top left side of head, no active bleeding at this time. I have greeted and performed a rapid initial assessment of this patient. A comprehensive ED assessment and evaluation of the patient, analysis of test results and completion of the medical decision making process will be conducted by additional ED providers. Dictation of this chart was performed using voice recognition software; therefore, there may be some unintended grammatical errors. TRAVEL OUTSIDE OF THE [place] IN LAST 30 DAYS: No - Related Data Allergies/Adverse Reactions: Iodinated Contrast- Oral and IV Dye [IV Dye, Iodine Containing] Allergy (Severe , Verified 11/18/17 15:47) "Trouble Breathing" aspirin [Aspirin] Allergy (Verified 11/18/17 15:47) bacitracin [Bacitracin] Allergy (Verified 11/18/17 15:47) cephalexin [Cephalexin] Allergy (Verified 11/18/17 15:47) iodine [Iodine] Allergy (Verified 11/18/17 15:47) latex [Latex] Allergy (Verified 11/18/17 15:47) Quinolones Allergy (Verified 11/18/17 15:47) Sulfa (Sulfonamide Antibiotics) Allergy (Verified 11/18/17 15:47) Past Medical History - Past Medical History Cardiac Medical History: Reports: Hx Congestive Heart Failure, Hx Hypercholesterolemia, Hx Hypertension Pulmonary Medical History: Reports: Hx Asthma Neurological Medical History: Reports: 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, 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 Endocrine Medical History: Reports: Hx Diabetes Mellitus Type 2 - Controlled with diet Renal/ Medical History: Denies: Hx Peritoneal Dialysis GI Medical History: Reports: Hx Gastroesophageal Reflux Disease Musculoskeltal Medical History: Reports Hx Arthritis Psychiatric Medical History: Reports: Hx Depression Past Surgical History: Reports: Hx Cholecystectomy, Hx Hysterectomy, Hx Orthopedic Surgery - Bilat Feet, Hx Tonsillectomy, Hx Umbilical Hernia - Immunizations Hx Diphtheria, Pertussis, Tetanus Vaccination: Yes Physical Exam - Vital signs Vitals: Temp Pulse Resp BP Pulse Ox 97.8 F 85 18 104/43 L 96 01/22/18 22:23 01/22/18 22:23 01/22/18 22:23 01/22/18 22:23 01/22/18 22:23 Course - Vital Signs Vital signs: Temp Pulse Resp BP Pulse Ox 97.8 F 85 18 104/43 L 96 01/22/18 22:23 01/22/18 22:23 01/22/18 22:23 01/22/18 22:23 01/22/18 22:23 Doctor's Discharge - Discharge Referrals: HOLLIS DURBIN, [Primary Care Provider] - Follow up as needed
--- NOTE | 2018-01-22 23:00 | RADIOLOGY REPORT (SQ) ---
EXAM DESCRIPTION: CT HEAD WITHOUT IV CONTRAST COMPLETED DATE/TME: 01/22/2018 22:35 CLINICAL HISTORY: 87 years Female, fall COMPARISON: December 26, 2015. MRI, December 26, 2015, report only. TECHNIQUE: No contrast. Coronal and sagittal reformat. This exam was performed according to our departmental dose-optimization program, which includes automated exposure control, adjustment of the mA and/or kV according to patient size and/or use of iterative reconstruction technique. FINDINGS: No hemorrhage. No mass, mass effect, or midline shift. Moderate encephalomalacia of the right frontoparietal lobe extends to the cerebral convexity, moderate confluent white matter microangiopathy, and atherosclerosis. Brain and extra-axial structures appear otherwise intact. Stable. IMPRESSION: No acute findings.
[2018-01-22 23:39] LABS: ABSOLUTE EOSINOPHILS # (AUTO) 0.2 10^3/uL (0.0-0.6); ABSOLUTE LYMPHOCYTES (AUTO) 1.9 10^3/uL (0.5-4.7); ABSOLUTE MONOCYTES (AUTO) 0.7 10^3/uL (0.1-1.4); ABSOLUTE NEUT (AUTO) 4.6 10^3/uL (1.7-8.2); BASOPHILS % (AUTO) 0.4 % (0-2); EOSINOPHILS % (AUTO) 2.1 % (0-6); HEMATOCRIT 32.1 % (36.0-47.0); HEMOGLOBIN 10.9 g/dL (12.0-15.5); MEAN CORPUSCULAR HEMOGLOBIN 30.3 pg (27.0-33.4); MEAN CORPUSCULAR VOLUME 89 fl (80-97); MONOCYTES % (AUTO) 9.5 % (3-13); PLATELET COUNT 294 10^3/uL (150-450); TOTAL CELLS COUNTED % (AUTO) 100 %; WHITE BLOOD COUNT 7.4 10^3/uL (4.0-10.5)
[2018-01-22 23:54] LABS: ALANINE AMINOTRANSFERASE 25 U/L (9-52); ALBUMIN 3.4 g/dL (3.5-5.0); ALKALINE PHOSPHATASE 50 U/L (38-126); ANION GAP 9 (5-19); ASPARTATE AMINO TRANSFERASE 25 U/L (14-36); BILIRUBIN,DIRECT 0.2 mg/dL (0.0-0.4); BILIRUBIN,TOTAL 0.4 mg/dL (0.2-1.3); BLOOD UREA NITROGEN 25 mg/dL (7-20); CALCIUM 9.1 mg/dL (8.4-10.2); CARBON DIOXIDE 29 mmol/L (22-30); CHLORIDE 100 mmol/L (98-107); GLUCOSE 88 mg/dL (75-110); POTASSIUM 4.5 mmol/L (3.6-5.0); SODIUM 137.6 mmol/L (137-145); TOTAL PROTEIN 6.3 g/dL (6.3-8.2)
--- NOTE | 2018-01-23 02:08 | RADIOLOGY REPORT (SQ) ---
EXAM DESCRIPTION: CT CERVICAL SPINE WITHOUT IV CONTRAST COMPLETED DATE/TME: 01/23/2018 01:25 CLINICAL HISTORY: 87 years Female, fall, head trauma Comparison: None. Technique: No contrast. Coronal and sagittal reformat. This exam was performed according to our departmental dose-optimization program, which includes automated exposure control, adjustment of the mA and/or kV according to patient size and/or use of iterative reconstruction technique.[facility]: Dose Right [facility]: CareDose [facility]: Dose Right [facility]: Teradose 4D [facility]: [facility] LIMITATIONS: None Findings: Mild reversed lordotic curvature. No fracture. Normal vertebral heights. 0.3 cm C3 degenerative anterolisthesis, mild/moderate spondylosis, moderate disc desiccation worse between the C4 and C7 levels and at the T1-T2 level and causing oigi-hi-aoaycban spinal canal stenoses. Atherosclerosis. Partially imaged nuchal soft tissues, inferior cranium, and upper thorax appear otherwise grossly intact. IMPRESSION: No acute findings.
[2018-01-23] MEDS ORDERED: LIDOCAINE 1%/EPINEPHRINE INJ 20 ML VIAL INJ ONE (02:13)
--- NOTE | 2018-01-23 03:01 | ER Document Report ---
ED General - General Chief Complaint: Head Injury without LOC Stated Complaint: FALL Time Seen by Provider: 01/22/18 22:29 Mode of Arrival: Wheelchair Information source: Patient, Relative Notes: 87-year-old female ambulates with a Rollator slipped and hit the left side of her head. There was no loss of consciousness. Patient does have a laceration to the left side of the head. Patient is accompanied by her son. There is no change in mental status. There is been no vomiting. Patient denies any pain to the extremities. She does have a cast on the left forearm from a previous fall. TRAVEL OUTSIDE OF THE [place] IN LAST 30 DAYS: No - HPI Onset: Just prior to arrival Onset/Duration: Gradual Quality of pain: No pain Severity: None Pain Level: Denies Associated symptoms: denies: Chest pain, Fever, Nausea, Vomiting, Shortness of breath Exacerbated by: Denies Relieved by: Denies Similar symptoms previously: Yes Recently seen / treated by doctor: Yes - Related Data Allergies/Adverse Reactions: Iodinated Contrast- Oral and IV Dye [IV Dye, Iodine Containing] Allergy (Severe , Verified 11/18/17 15:47) "Trouble Breathing" aspirin [Aspirin] Allergy (Verified 11/18/17 15:47) bacitracin [Bacitracin] Allergy (Verified 11/18/17 15:47) cephalexin [Cephalexin] Allergy (Verified 11/18/17 15:47) iodine [Iodine] Allergy (Verified 11/18/17 15:47) latex [Latex] Allergy (Verified 11/18/17 15:47) Quinolones Allergy (Verified 11/18/17 15:47) Sulfa (Sulfonamide Antibiotics) Allergy (Verified 11/18/17 15:47) Past Medical History - General Information source: Patient - Social History Smoking Status: Unknown if Ever Smoked Cigarette use (# per day): No Chew tobacco use (# tins/day): No Frequency of alcohol use: None Drug Abuse: None Lives with: Family Family History: DM, Hypertension Patient has suicidal ideation: No Patient has homicidal ideation: No - Past Medical History Cardiac Medical History: Reports: Hx Congestive Heart Failure, Hx Hypercholesterolemia, Hx Hypertension Pulmonary Medical History: Reports: Hx Asthma Neurological Medical History: Reports: 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, 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 Endocrine Medical History: Reports: Hx Diabetes Mellitus Type 2 - Controlled with diet Renal/ Medical History: Denies: Hx Peritoneal Dialysis GI Medical History: Reports: Hx Gastroesophageal Reflux Disease Musculoskeletal Medical History: Reports Hx Arthritis Psychiatric Medical History: Reports: Hx Depression Past Surgical History: Reports: Hx Cholecystectomy, Hx Hysterectomy, Hx Orthopedic Surgery - Bilat Feet, Hx Tonsillectomy, Hx Umbilical Hernia - Immunizations Hx Diphtheria, Pertussis, Tetanus Vaccination: Yes Hx Pneumococcal Vaccination: 05/27/08 Review of Systems - Review of Systems Constitutional: denies: Chills, Fever EENT: See HPI, Other - Laceration left side of face Cardiovascular: No symptoms reported Respiratory: No symptoms reported Gastrointestinal: No symptoms reported. denies: Abdominal pain, Vomiting Female Genitourinary: No symptoms reported Musculoskeletal: No symptoms reported Skin: See HPI Hematologic/Lymphatic: No symptoms reported Neurological/Psychological: See HPI Physical Exam - Vital signs Vitals: Temp Pulse Resp BP Pulse Ox 97.8 F 85 18 104/43 L 96 01/22/18 22:23 01/22/18 22:23 01/22/18 22:23 01/22/18 22:23 01/22/18 22:23 Notes: Physical exam: GENERAL: 87-year-old female, alert and oriented 3, no acute distress. HEAD: She has a 4 cm laceration to the left parietal bone. Normocephalic. EYES: Pupils equal round and reactive to light, extraocular movements intact, sclera anicteric, conjunctiva are normal. ENT: TMs normal, nares patent, oropharynx clear without exudates. Moist mucous membranes. NECK: Normal range of motion, supple without obvious mass. LUNGS: Breath sounds clear to auscultation bilaterally and equal. No wheezes rales or rhonchi. HEART: Regular rate and rhythm without murmurs, rubs or gallops. ABDOMEN: Soft, normoactive bowel sounds. No tenderness to palpation. No guarding, no rebound. No masses appreciated. EXTREMITIES: Patient does have left forearm cast on. Normal range of motion, no pitting or edema. No clubbing or cyanosis. NEUROLOGICAL: Cranial nerves II through XII grossly intact. Normal speech, moving all extremities. PSYCH: Normal mood, normal affect. SKIN: Laceration as mentioned above. Course - Vital Signs Vital signs: Temp Pulse Resp BP Pulse Ox 97.6 F 81 20 133/42 H 96 01/23/18 03:16 01/23/18 03:16 01/23/18 03:16 01/23/18 03:16 01/23/18 03:16 - Laboratory Result Diagrams: 01/22/18 23:20 01/22/18 23:20 Laboratory results interpreted by me: 01/22/18 01/22/18 23:20 23:20 RBC 3.60 L Hgb 10.9 L Hct 32.1 L RDW 15.0 H BUN 25 H Est GFR ( Amer) 59 L Est GFR (Non-Af Amer) 49 L Albumin 3.4 L - EKG Interpretation by Me Rate: Bradycardia Rhythm: NSR - EKG shows his bradycardia with a ventricular rate of 56, no acute ST-T wave changes Procedures - Laceration/Wound Repair Left Head Time completed: 03:31 Wound length (cm): 4 Wound's Depth, Shape: Linear Laceration pre-procedure: Betadine prep applied, Shur-Clens applied Anesthetic type: 1% Lidocaine w/epi Volume Anesthetic (mLs): 5 Wound explored: Clean Wound Debrided: Minimal Wound Repaired With: Riccardo Post-procedure NV exam normal: Yes Complications: No Notes: 01/23/18 03:32 8 riccardo placed Discharge - Discharge Clinical Impression: Scalp laceration, Head contusion, Status post fall Clinical Impression: (Ruled Out): That is post fall Condition: Stable Disposition: HOME, SELF-CARE Instructions: Scalp Laceration ([facility]) Additional Instructions: Keep the riccardo dry. Can keep laceration open to air: It will heal better. Return in 7 days for staple removal: You can return to the front of the emergency room. Return to the emergency room for any worsening confusion, persistent vomiting or any concerns or getting worse. Forms: Follow up ([facility]/[place]) Referrals: HOLLIS DURBIN, [Primary Care Provider] - Follow up as needed
[2018-01-23 03:21] VITALS: BP 133/42
--- NOTE | 2018-01-23 07:49 | EKG REPORT ---
SEVERITY:- ABNORMAL ECG - SINUS BRADYCARIA LOW VOLTAGE IN FRONTAL LEADS : Confirmed by: Chris Jean MD 23-Jan-2018 07:49:05
== END 2018-01-23 03:16 | disposition home or self-care (01) ==
LOC: ER 21:57
PROC: 0HQ0XZZ Repair Scalp Skin, External Approach (ICD-10-PCS; principal; 2018-01-22)
DX: S01.01XA Laceration without foreign body of scalp, initial encounter (principal); S09.90XA Unspecified injury of head, initial encounter; W01.10XA Fall on same level from slipping, tripping and stumbling with subsequent striking against unspecified object, initial encounter; I50.9 Heart failure, unspecified; E78.00 Pure hypercholesterolemia, unspecified; I11.0 Hypertensive heart disease with heart failure; E11.9 Type 2 diabetes mellitus without complications; Z88.2 Allergy status to sulfonamides; Z91.040 Latex allergy status; Z90.49 Acquired absence of other specified parts of digestive tract; Z90.710 Acquired absence of both cervix and uterus
CPT/HCPCS: 93005; 99284; 36415; 85025; 80053; 70450; 72125; 93010; 12002; J3490